=== PATIENT | male | born 1935 | race Caucasian/White ===

== ENCOUNTER 2016-05-06 20:28 | Emergency (ER) | payer MEDICARE, OTHER ==
[~2016-05-06] VITALS: Ht 177.8 cm; Wt 81.8 kg
[~2016-05-06 20:28] MED LIST: COUMADIN; DILTIAZEM360 MG PO; HCTZ 25MG25 MG PO; K-DUR20 MEQ PO; LIP PO; LISINOPRIL5 MG PO; LOW DOSE ASPIRI81 MG PO; NIASPAN 500MG500 MG PO; SORBITRATE PO
[2016-05-06 20:29] VITALS: TEMP 97.9
[2016-05-06 21:24] LABS: ADJUSTED CALCIUM 9.1 mg/dL (8.4-10.2); ALANINE AMINOTRANSFERASE 37 U/L (21-72); ALBUMIN 4.4 gm/dL (3.5-5.0); ALKALINE PHOSPHATASE 100 U/L (50-136); ANION GAP 15 mmol/L (7-16); BILIRUBIN,TOTAL 0.8 mg/dL (0.0-1.0); BLOOD UREA NITROGEN 28 mg/dL (9-20); CALCIUM 9.4 mg/dL (8.4-10.2); CARBON DIOXIDE 21 mmol/L (22-30); CHLORIDE 103 mmol/L (98-107); CREATININE, serum 1.65 mg/dL (0.66-1.25); GLUCOSE 120 mg/dL (74-106); POTASSIUM 4.6 mmol/L (3.4-5.0); SODIUM 139 mmol/L (137-145); TOTAL PROTEIN 10.1 gm/dL (6.4-8.2)
[2016-05-06 21:25] LABS: BASO % 0.4 % (0.0-2.0); EOS # 0.1 (0.0-0.7); EOS % 1.1 % (0-4.0); GRAN # 5.5 (1.4-6.5); GRAN % 76.5 % (42.2-75.2); LYMPH % 13.9 % (20.0-51.0); MEAN CELL VOLUME 89 fl (80.0-100.0); MEAN CORPUSCULAR HEMOGLOBIN 30 pg (27.0-31.0); MEAN CORPUSCULAR HGB CONC 34 g/dl (33.0-37.0); MEAN PLATELET VOLUME 10.7 fl (7.4-10.4); MONO # 0.6 (0.1-0.6); MONO % 7.7 % (1.7-9.3); PLATELET COUNT 213 K/mm3 (130-400); RED BLOOD COUNT 4.04 M/mm3 (4.20-5.60); REDCELL DISTRIBUTION WIDTH-CV 14.3 % (11.5-14.5); WHITE BLOOD COUNT 7.2 K/mm3 (4.8-10.8)
[2016-05-06 21:30] LABS: HEMATOCRIT 35.8 % (42.0-52.0)
[2016-05-06 21:37] LABS: INR 2.5 (0.8-3.0); TROPONIN-I < 0.012 ng/mL (0.000-0.034)
[2016-05-06 21:39] LABS: PARTIAL THROMBOPLASTIN TIME 20.6 SECONDS (26.0-37.0)
[2016-05-06] MEDS ORDERED: NORCO 325 MG-51 TAB PO (21:59)
[2016-05-06 22:23] VITALS: BP 131/61; PULSE 69
== END 2016-05-06 22:23 | disposition home or self-care (01) ==
LOC: COL.ER 20:28
PROVIDERS: Family Medicine
DX: R07.89 Other chest pain (principal); R09.89 Other specified symptoms and signs involving the circulatory and respiratory systems; I10 Essential (primary) hypertension; I25.10 Atherosclerotic heart disease of native coronary artery without angina pectoris; I48.91 Unspecified atrial fibrillation; Z79.01 Long term (current) use of anticoagulants
CPT/HCPCS: J1885

== ENCOUNTER 2016-05-23 10:06 | Outpatient (CLI) | payer MEDICARE, OTHER ==
[~2016-05-23] VITALS: Ht 177.8 cm; Wt 81.8 kg
[2016-05-23] VITALS (8 sets, daily range): BP systolic 121–150; BP diastolic 55–73; PULSE 44–65; TEMP 96.3–97.5
[~2016-05-23 10:06] MED LIST changes: +NORCO 325 MG-51 TAB PO
[2016-05-23] MEDS ORDERED: ASPIRIN E.C. 8181 MG PO (10:56)
[2016-05-23] MEDS ORDERED: LIPITOR 40MG TA40 MG PO (10:57)
[2016-05-23] MEDS ORDERED: ISORDIL 20MG20 M1 PO (11:11)
[2016-05-23] MEDS ORDERED: COUMADIN 3MG3 MG/TAB PO (11:14)
[2016-05-23] MEDS ORDERED: COUMADIN 2MG2 MG/TAB PO (11:14)
[2016-05-23] MEDS ORDERED: LOVENOX 8080 MG/0.8 SQ (11:15)
[2016-05-23 11:37] LABS: INR 1.1 (0.8-3.0); PROTHROMBIN TIME 11.8 SECONDS (9.7-12.8)
== END 2016-05-23 17:29 | disposition home or self-care (01) ==
LOC: EUO 10:06
PROVIDERS: Radiology Diagnostic Radiology
DX: M48.54XG Collapsed vertebra, not elsewhere classified, thoracic region, subsequent encounter for fracture with delayed healing (principal); Z79.01 Long term (current) use of anticoagulants
CPT/HCPCS: J2250; J3010; J7120

== ENCOUNTER 2016-07-17 04:44 | Inpatient (IN) | payer MEDICARE, OTHER ==
[~2016-07-17] VITALS: Ht 175.3 cm; Wt 79.8 kg
[~2016-07-17 04:44] MED LIST changes: +ASPIRIN E.C. 8181 MG PO; +COUMADIN 2MG2 MG/TAB PO; +COUMADIN 3MG3 MG/TAB PO; +ISORDIL 20MG20 M1 PO; +LIPITOR 40MG TA40 MG PO; +LOVENOX 8080 MG/0.8 SQ
[2016-07-17] MEDS ORDERED: ISORDIL TITRADO30 MG PO (04:55)
[2016-07-17] MEDS ORDERED: ZOVIRAX400 MG PO (04:58)
[2016-07-17] MEDS ORDERED: DECADRON 4MG TAB4 MG PO (04:59)
[2016-07-17] MEDS ORDERED: VELCADE3.5 MG SQ (05:00)
[2016-07-17] MEDS ORDERED: ZOMETA4 MG/5 ML IV (05:01)
[2016-07-17] MEDS ORDERED: PERI-COLACE 501 TAB PO ×2 (05:02→05:03)
[2016-07-17 05:51] LABS: MEAN CELL VOLUME 87 fl (80.0-100.0); MEAN CORPUSCULAR HGB CONC 35 g/dl (33.0-37.0); PLATELET COUNT 95 K/mm3 (130-400); RED BLOOD COUNT 3.45 M/mm3 (4.20-5.60); REDCELL DISTRIBUTION WIDTH-CV 15.5 % (11.5-14.5); WHITE BLOOD COUNT 12.4 K/mm3 (4.8-10.8)
[2016-07-17 06:02] LABS: ADJUSTED CALCIUM 9.3 mg/dL (8.4-10.2); ALBUMIN 3.8 gm/dL (3.5-5.0); BILIRUBIN,TOTAL 0.8 mg/dL (0.0-1.0); CALCIUM 9.1 mg/dL (8.4-10.2); CREATININE, serum 1.42 mg/dL (0.66-1.25); TOTAL PROTEIN 8.2 gm/dL (6.4-8.2)
[2016-07-17 06:03] LABS: ADD PATHOLOGY DIFF REVIEW NO; HEMATOCRIT 29.9 % (42.0-52.0); HEMOGLOBIN 10.5 g/dl (13.5-18.0); MEAN CORPUSCULAR HEMOGLOBIN 30 pg (27.0-31.0)
[2016-07-17 06:09] LABS: INR 2.1 (0.8-3.0); PROTHROMBIN TIME 24.2 SECONDS (9.7-12.8)
[2016-07-17 06:19] LABS: BAND 17 % (0-10); NEUTROPHILS 62 % (42.0-75.2); TOTAL CELLS COUNTED 100
[2016-07-17 08:26] VITALS: BP 153/75; PULSE 87; TEMP 97.4
[2016-07-17 13:11] VITALS: BP 134/59; PULSE 86; TEMP 98
[2016-07-17 15:58] LABS: PH 5 (5-8); SQUAMOUS EPITHELIAL None Seen /hpf; URINE APPEARANCE Clear; URINE BACTERIA None Seen /hpf; URINE BILIRUBIN Negative (NEGATIVE); URINE BLOOD Negative (NEGATIVE); URINE COLOR Yellow; URINE GLUCOSE Negative (NEGATIVE); URINE KETONE Negative (NEGATIVE); URINE RBC 0-2 /hpf; URINE UROBILINOGEN Negative (NEGATIVE); URINE WBC 0-2 /hpf
[2016-07-17 17:25] VITALS: BP 163/78; PULSE 86; TEMP 98.4
[2016-07-17 21:41] VITALS: BP 150/65; PULSE 85; TEMP 98.5
[2016-07-18 02:57] VITALS: BP 108/87; PULSE 87; TEMP 98.2
[2016-07-18 05:03] VITALS: BP 146/71; PULSE 77; TEMP 98.5
[2016-07-18 08:26] LABS: CALCIUM 8.5 mg/dL (8.4-10.2); CREATININE, serum 1.31 mg/dL (0.66-1.25); POTASSIUM 4.1 mmol/L (3.4-5.0)
[2016-07-18 08:52] LABS: MEAN CELL VOLUME 89 fl (80.0-100.0); MEAN CORPUSCULAR HGB CONC 34 g/dl (33.0-37.0); MEAN PLATELET VOLUME 13.5 fl (7.4-10.4); PLATELET COUNT 85 K/mm3 (130-400); RED BLOOD COUNT 3.09 M/mm3 (4.20-5.60); REDCELL DISTRIBUTION WIDTH-CV 16.1 % (11.5-14.5); WHITE BLOOD COUNT 7.1 K/mm3 (4.8-10.8)
[2016-07-18 08:54] LABS: ADD PATHOLOGY DIFF REVIEW NO; HEMATOCRIT 27.5 % (42.0-52.0); HEMOGLOBIN 9.3 g/dl (13.5-18.0); MEAN CORPUSCULAR HEMOGLOBIN 30 pg (27.0-31.0)
[2016-07-18 08:55] LABS: INR 2.3 (0.8-3.0); PROTHROMBIN TIME 26.1 SECONDS (9.7-12.8)
[2016-07-18 10:23] VITALS: BP 113/52; PULSE 83; TEMP 98.2
[2016-07-18 12:31] LABS: BAND 7 % (0-10); EOSINOPHIL 2 % (0-4); NEUTROPHILS 67 % (42.0-75.2); TOTAL CELLS COUNTED 100
[2016-07-18 12:32] LABS: ANISOCYTOSIS 1+; PLATELET ESTIMATE DECREASED (NORMAL)
[2016-07-18 14:02] VITALS: BP 108/59; PULSE 92; TEMP 97.5
== END 2016-07-18 16:10 | disposition home or self-care (01) | DRG 389 ==
LOC: COL.ER 04:44 → SURG 07:11
PROVIDERS: Emergency Medicine; Surgery
DX: K56.60 Unspecified intestinal obstruction (principal); C90.00 Multiple myeloma not having achieved remission; I25.10 Atherosclerotic heart disease of native coronary artery without angina pectoris; I12.9 Hypertensive chronic kidney disease with stage 1 through stage 4 chronic kidney disease, or unspecified chronic kidney disease; N18.9 Chronic kidney disease, unspecified; Z87.891 Personal history of nicotine dependence
CPT/HCPCS: J1170; J1650; J2405; J7120; Q9967

== ENCOUNTER 2016-08-07 10:58 | Inpatient (IN) | payer MEDICARE, OTHER ==
[2016-08-07] VITALS (302 sets, daily range): BP systolic 97–106; BP diastolic 48–66; PULSE 52–57; TEMP 97.7–98.2; O2SAT 92–99
[~2016-08-07] VITALS: Ht 175.3 cm; Wt 87.9 kg
[~2016-08-07 10:58] MED LIST changes: +DECADRON 4MG TAB4 MG PO; +ISORDIL TITRADO30 MG PO; +PERI-COLACE 501 TAB PO; +VELCADE3.5 MG SQ; +ZOMETA4 MG/5 ML IV; +ZOVIRAX400 MG PO
[2016-08-07 11:36] LABS: INR 2.9 (0.8-3.0); PROTHROMBIN TIME 33.6 SECONDS (9.7-12.8)
[2016-08-07 11:37] LABS: BASO % 0.2 % (0.0-2.0); EOS % 0.7 % (0-4.0); GRAN % 70.1 % (42.2-75.2); LYMPH # 0.7 (1.2-3.4); LYMPH % 12.9 % (20.0-51.0); MEAN CELL VOLUME 90 fl (80.0-100.0); MEAN CORPUSCULAR HGB CONC 34 g/dl (33.0-37.0); MONO # 0.5 (0.1-0.6); MONO % 8.9 % (1.7-9.3); PLATELET COUNT 72 K/mm3 (130-400); RED BLOOD COUNT 2.57 M/mm3 (4.20-5.60); REDCELL DISTRIBUTION WIDTH-CV 17.4 % (11.5-14.5); WHITE BLOOD COUNT 5.7 K/mm3 (4.8-10.8)
[2016-08-07 11:39] LABS: PARTIAL THROMBOPLASTIN TIME 34.2 SECONDS (26.0-37.0)
[2016-08-07 11:44] LABS: HEMATOCRIT 23.1 % (42.0-52.0); HEMOGLOBIN 7.9 g/dl (13.5-18.0); MEAN CORPUSCULAR HEMOGLOBIN 31 pg (27.0-31.0)
[2016-08-07 11:47] LABS: ADD PATHOLOGY DIFF REVIEW NO
[2016-08-07 11:51] LABS: ADJUSTED CALCIUM 7.9 mg/dL (8.4-10.2); ALBUMIN 3.2 gm/dL (3.5-5.0); BILIRUBIN,TOTAL 0.5 mg/dL (0.0-1.0); CALCIUM 7.3 mg/dL (8.4-10.2); CREATININE, serum 1.97 mg/dL (0.66-1.25); POTASSIUM 3.8 mmol/L (3.4-5.0)
[2016-08-07 12:13] LABS: TROPONIN-I 0.063 ng/mL (0.000-0.034)
[2016-08-07] MEDS ORDERED: MULTI VITAMINS1 TAB PO (12:23)
[2016-08-07] MEDS ORDERED: CALCIUM 600/VIT1 CA1 PO (12:23)
[2016-08-07] MEDS ORDERED: TYLENOL PM EXTR1 TA1 PO (12:24)
[2016-08-07 14:02] LABS: BAND 11 % (0-10); NEUTROPHILS 67 % (42.0-75.2); TOTAL CELLS COUNTED 100
[2016-08-07 14:03] LABS: ANISOCYTOSIS 2+
[2016-08-07 14:04] LABS: HYPOCHROMIA 1+
[2016-08-07 14:06] LABS: PLATELET ESTIMATE DECREASED (NORMAL)
[2016-08-08] VITALS (1190 sets, daily range): BP systolic 96–150; BP diastolic 52–86; PULSE 54–89; TEMP 97.7–99.4; O2SAT 89–98
[2016-08-08 06:14] LABS: MEAN CELL VOLUME 89 fl (80.0-100.0); MEAN CORPUSCULAR HGB CONC 34 g/dl (33.0-37.0); MEAN PLATELET VOLUME 13.4 fl (7.4-10.4); PLATELET COUNT 67 K/mm3 (130-400); RED BLOOD COUNT 3.25 M/mm3 (4.20-5.60); REDCELL DISTRIBUTION WIDTH-CV 16.8 % (11.5-14.5); WHITE BLOOD COUNT 5.8 K/mm3 (4.8-10.8)
[2016-08-08 06:18] LABS: HEMATOCRIT 28.9 % (42.0-52.0); HEMOGLOBIN 9.8 g/dl (13.5-18.0); MEAN CORPUSCULAR HEMOGLOBIN 30 pg (27.0-31.0)
[2016-08-08 06:34] LABS: CALCIUM 7.7 mg/dL (8.4-10.2); CREATININE, serum 1.64 mg/dL (0.66-1.25); POTASSIUM 4.2 mmol/L (3.4-5.0)
[2016-08-08 06:49] LABS: TROPONIN-I 0.04 ng/mL (0.000-0.034)
[2016-08-08 07:06] LABS: BAND 17 % (0-10); EOSINOPHIL 4 % (0-4); METAMYELOCYTE 3 % (0-0); NEUTROPHILS 61 % (42.0-75.2); PLATELET ESTIMATE DECREASED (NORMAL); TOTAL CELLS COUNTED 100
[2016-08-08 07:07] LABS: OVALOCYTES 1+; SCHISTOCYTES 1+
[2016-08-08 07:11] LABS: ADD PATHOLOGY DIFF REVIEW YES
[2016-08-08 08:47] LABS: PATHOLOGY DIFF REVIEW OK
[2016-08-08 13:16] LABS: INR 2.9 (0.8-3.0); PROTHROMBIN TIME 33.5 SECONDS (9.7-12.8)
[2016-08-09] VITALS (584 sets, daily range): BP systolic 112–141; BP diastolic 46–68; PULSE 55–75; TEMP 97.5–98.8; O2SAT 79–100
[2016-08-09 06:15] LABS: MEAN CELL VOLUME 89 fl (80.0-100.0); MEAN CORPUSCULAR HGB CONC 33 g/dl (33.0-37.0); MEAN PLATELET VOLUME 13.2 fl (7.4-10.4); PLATELET COUNT 70 K/mm3 (130-400); RED BLOOD COUNT 3.08 M/mm3 (4.20-5.60); REDCELL DISTRIBUTION WIDTH-CV 16.9 % (11.5-14.5); WHITE BLOOD COUNT 6.1 K/mm3 (4.8-10.8)
[2016-08-09 06:17] LABS: INR 2.4 (0.8-3.0); PROTHROMBIN TIME 27.9 SECONDS (9.7-12.8)
[2016-08-09 06:21] LABS: ADD PATHOLOGY DIFF REVIEW NO; HEMATOCRIT 27.4 % (42.0-52.0); HEMOGLOBIN 9.1 g/dl (13.5-18.0); MEAN CORPUSCULAR HEMOGLOBIN 30 pg (27.0-31.0)
[2016-08-09 06:33] LABS: CALCIUM 7.6 mg/dL (8.4-10.2); CREATININE, serum 1.57 mg/dL (0.66-1.25); POTASSIUM 3.6 mmol/L (3.4-5.0)
[2016-08-09 06:46] LABS: BAND 8 % (0-10); EOSINOPHIL 1 % (0-4); METAMYELOCYTE 3 % (0-0); NEUTROPHILS 75 % (42.0-75.2); PLATELET ESTIMATE DECREASED (NORMAL); TOTAL CELLS COUNTED 100
[2016-08-09] MEDS ORDERED: ZANTAC 7575 MG PO (18:17)
[2016-08-10 04:15] VITALS: BP 168/68; PULSE 73; TEMP 97.9
[2016-08-10 07:46] LABS: MEAN CELL VOLUME 88 fl (80.0-100.0); MEAN CORPUSCULAR HGB CONC 34 g/dl (33.0-37.0); MEAN PLATELET VOLUME 12.8 fl (7.4-10.4); PLATELET COUNT 81 K/mm3 (130-400); RED BLOOD COUNT 3.34 M/mm3 (4.20-5.60); REDCELL DISTRIBUTION WIDTH-CV 16.7 % (11.5-14.5); WHITE BLOOD COUNT 6.9 K/mm3 (4.8-10.8)
[2016-08-10 07:50] LABS: INR 2.2 (0.8-3.0); PROTHROMBIN TIME 25.2 SECONDS (9.7-12.8)
[2016-08-10 07:52] VITALS: BP 128/62; PULSE 67; TEMP 97.8
[2016-08-10 07:54] LABS: ADD PATHOLOGY DIFF REVIEW NO; HEMATOCRIT 29.3 % (42.0-52.0); MEAN CORPUSCULAR HEMOGLOBIN 30 pg (27.0-31.0)
[2016-08-10 07:58] LABS: ADJUSTED CALCIUM 8.8 mg/dL (8.4-10.2); BILIRUBIN,TOTAL 0.9 mg/dL (0.0-1.0); CREATININE, serum 1.53 mg/dL (0.66-1.25); POTASSIUM 3.8 mmol/L (3.4-5.0); TOTAL PROTEIN 6.9 gm/dL (6.4-8.2)
[2016-08-10 09:06] LABS: BAND 10 % (0-10); EOSINOPHIL 2 % (0-4); METAMYELOCYTE 1 % (0-0); NEUTROPHILS 66 % (42.0-75.2); PLATELET ESTIMATE DECREASED (NORMAL); SCHISTOCYTES 1+; TOTAL CELLS COUNTED 100
[2016-08-10 11:53] VITALS: BP 114/41; PULSE 65; TEMP 97.4
[2016-08-10] MEDS ORDERED: IMDUR 30MG30 MG/TAB PO (14:13)
[2016-08-10] MEDS ORDERED: ZEBETA 5MG5 MG PO (14:13)
[2016-08-10] MEDS ORDERED: RANEXA 500MG T500 MG PO (14:18)
== END 2016-08-10 15:00 | disposition home or self-care (01) | DRG 303 ==
LOC: COL.ER 10:58 → IMCU 12:46 → MEDICAL 08-09 12:21
PROVIDERS: Emergency Medicine; Family Medicine; Internal Medicine Cardiovascular Disease
DX: I25.110 Atherosclerotic heart disease of native coronary artery with unstable angina pectoris (principal); C90.00 Multiple myeloma not having achieved remission; K56.7 Ileus, unspecified; I12.9 Hypertensive chronic kidney disease with stage 1 through stage 4 chronic kidney disease, or unspecified chronic kidney disease; N18.3 Chronic kidney disease, stage 3 (moderate); Z87.891 Personal history of nicotine dependence; I25.41 Coronary artery aneurysm; Z79.01 Long term (current) use of anticoagulants; Z85.51 Personal history of malignant neoplasm of bladder; D64.9 Anemia, unspecified; D69.6 Thrombocytopenia, unspecified
CPT/HCPCS: 99223-AI; 99232-AI; 99233-AI; 99239; J1200; J1940; J2405; J2550; J7030; J7050; P9016

== ENCOUNTER 2016-09-21 10:06 | Outpatient (RCR) | payer MEDICARE, OTHER ==
[2016-09-21] VITALS (8 sets, daily range): BP systolic 110–145; BP diastolic 51–77; PULSE 52–61; TEMP 97.4–97.6
[~2016-09-21 10:06] MED LIST changes: +CALCIUM 600/VIT1 CA1 PO; +IMDUR 30MG30 MG/TAB PO; +MULTI VITAMINS1 TAB PO; +RANEXA 500MG T500 MG PO; +TYLENOL PM EXTR1 TA1 PO; +ZANTAC 7575 MG PO; +ZEBETA 5MG5 MG PO
== END 2016-09-21 16:24 | disposition home or self-care (01) ==
LOC: EUO 10:06 → MEDICAL 10:08 → EUO 16:24
DX: R07.9 Chest pain, unspecified (principal)
CPT/HCPCS: OP; J7050; P9016

== ENCOUNTER 2016-10-10 06:32 | Inpatient (IN) | payer MEDICARE, OTHER ==
[~2016-10-10] VITALS: Ht 175.3 cm; Wt 80.4 kg
[2016-10-10 07:00] VITALS: BP 100/42; PULSE 75; TEMP 97.2
[2016-10-10 07:03] LABS: MEAN CELL VOLUME 92 fl (80.0-100.0); MEAN CORPUSCULAR HGB CONC 33 g/dl (33.0-37.0); PLATELET COUNT 220 K/mm3 (130-400); RED BLOOD COUNT 3.81 M/mm3 (4.20-5.60); REDCELL DISTRIBUTION WIDTH-CV 17.2 % (11.5-14.5); WHITE BLOOD COUNT 8.9 K/mm3 (4.8-10.8)
[2016-10-10 07:07] LABS: HEMATOCRIT 34.9 % (42.0-52.0); HEMOGLOBIN 11.4 g/dl (13.5-18.0); MEAN CORPUSCULAR HEMOGLOBIN 30 pg (27.0-31.0)
[2016-10-10 07:12] LABS: INR 1.5 (0.8-3.0); PROTHROMBIN TIME 17.2 SECONDS (9.7-12.8)
[2016-10-10 07:19] LABS: CALCIUM 8.7 mg/dL (8.4-10.2); CREATININE, serum 3.56 mg/dL (0.66-1.25); POTASSIUM 4.8 mmol/L (3.4-5.0)
[2016-10-10] MEDS ORDERED: RANEXA 500MG T500 MG PO (07:27)
[2016-10-10] MEDS ORDERED: ZEBETA 5MG5 MG PO (07:30)
[2016-10-10] MEDS ORDERED: PREDNISONE20 MG PO (07:31)
[2016-10-10] MEDS ORDERED: IMDUR 30MG30 MG/TAB PO (07:32)
[2016-10-10 08:42] VITALS: BP 97/54; PULSE 81
[2016-10-10] MEDS ORDERED: FLOMAX 0.40.4 MG/CAP PO (09:14)
[2016-10-10 15:42] LABS: ADJUSTED CALCIUM 8.9 mg/dL (8.4-10.2); ALBUMIN 3.4 gm/dL (3.5-5.0); BILIRUBIN,TOTAL 0.6 mg/dL (0.0-1.0); CALCIUM 8.4 mg/dL (8.4-10.2); CREATININE, serum 3.49 mg/dL (0.66-1.25); TOTAL PROTEIN 6.7 gm/dL (6.4-8.2)
[2016-10-10 20:50] VITALS: BP 120/44; PULSE 80; TEMP 99
[2016-10-11 03:30] VITALS: BP 145/82; PULSE 84; TEMP 98
[2016-10-11 06:22] LABS: MEAN CELL VOLUME 91 fl (80.0-100.0); MEAN CORPUSCULAR HGB CONC 33 g/dl (33.0-37.0); MEAN PLATELET VOLUME 11.3 fl (7.4-10.4); PLATELET COUNT 209 K/mm3 (130-400); RED BLOOD COUNT 3.33 M/mm3 (4.20-5.60); REDCELL DISTRIBUTION WIDTH-CV 17.2 % (11.5-14.5); WHITE BLOOD COUNT 8.1 K/mm3 (4.8-10.8)
[2016-10-11 06:26] LABS: ADD PATHOLOGY DIFF REVIEW NO; HEMATOCRIT 30.4 % (42.0-52.0); HEMOGLOBIN 9.9 g/dl (13.5-18.0); MEAN CORPUSCULAR HEMOGLOBIN 30 pg (27.0-31.0)
[2016-10-11 06:31] LABS: INR 1.3 (0.8-3.0); PROTHROMBIN TIME 14.7 SECONDS (9.7-12.8)
[2016-10-11 06:33] LABS: ADJUSTED CALCIUM 8.5 mg/dL (8.4-10.2); ALBUMIN 3.8 gm/dL (3.5-5.0); BILIRUBIN,TOTAL 0.6 mg/dL (0.0-1.0); CALCIUM 8.3 mg/dL (8.4-10.2); MAGNESIUM 2.2 mg/dL (1.6-2.3); POTASSIUM 4.7 mmol/L (3.4-5.0); TOTAL PROTEIN 7.7 gm/dL (6.4-8.2)
[2016-10-11 06:49] LABS: BAND 10 % (0-10); EOSINOPHIL 2 % (0-4); METAMYELOCYTE 4 % (0-0); NEUTROPHILS 74 % (42.0-75.2); TOTAL CELLS COUNTED 100; TOXIC GRANULATION PRESENT
[2016-10-11 06:50] LABS: MICROCYTOSIS 1+; SCHISTOCYTES 1+
[2016-10-11 06:51] LABS: ROULEAUX 1+
[2016-10-11 06:52] LABS: ANISOCYTOSIS 1+; HYPOCHROMIA 1+; POIKILOCYTOSIS 1+
[2016-10-11 08:34] VITALS: BP 142/70; PULSE 87; TEMP 97.9
[2016-10-11 11:22] LABS: PH 5 (5-8); SQUAMOUS EPITHELIAL None Seen /hpf; URINE APPEARANCE Turbid; URINE BACTERIA Many /hpf; URINE BILIRUBIN Negative (NEGATIVE); URINE BLOOD Negative (NEGATIVE); URINE COLOR Amber; URINE GLUCOSE Negative (NEGATIVE); URINE KETONE Negative (NEGATIVE); URINE RBC None Seen /hpf; URINE UROBILINOGEN Negative (NEGATIVE); URINE WBC >50 /hpf
[2016-10-11 11:54] LABS: CREATININE, serum 2.75 mg/dL (0.66-1.25)
[2016-10-11 12:07] VITALS: BP 125/73; PULSE 91; TEMP 97.4
[2016-10-11 12:09] LABS: FRACTIONAL EXCRETION OF NA+ 1.2 %
[2016-10-11 16:01] LABS: ANA SCREEN with REFLEX Negative (Negative)
[2016-10-11 16:40] VITALS: BP 135/80; PULSE 90; TEMP 97.4
[2016-10-11 20:06] VITALS: BP 151/74; PULSE 91; TEMP 98
[2016-10-11 23:20] VITALS: BP 137/64; PULSE 88; TEMP 98
[2016-10-12] VITALS (11 sets, daily range): BP systolic 114–155; BP diastolic 62–91; PULSE 83–107; TEMP 97.9–98.7
[2016-10-12 07:23] LABS: MEAN CELL VOLUME 91 fl (80.0-100.0); MEAN CORPUSCULAR HGB CONC 32 g/dl (33.0-37.0); MEAN PLATELET VOLUME 11.6 fl (7.4-10.4); PLATELET COUNT 160 K/mm3 (130-400); RED BLOOD COUNT 3.13 M/mm3 (4.20-5.60); REDCELL DISTRIBUTION WIDTH-CV 17.2 % (11.5-14.5); WHITE BLOOD COUNT 5.5 K/mm3 (4.8-10.8)
[2016-10-12 07:27] LABS: HEMATOCRIT 28.5 % (42.0-52.0); HEMOGLOBIN 9.2 g/dl (13.5-18.0); MEAN CORPUSCULAR HEMOGLOBIN 29 pg (27.0-31.0)
[2016-10-12 07:45] LABS: CALCIUM 8.3 mg/dL (8.4-10.2); CREATININE, serum 1.89 mg/dL (0.66-1.25); POTASSIUM 4.9 mmol/L (3.4-5.0)
[2016-10-12 08:41] LABS: ANISOCYTOSIS 2+; BAND 44 % (0-10); METAMYELOCYTE 2 % (0-0); MYELOCYTE 4 % (0-0); NEUTROPHILS 37 % (42.0-75.2); OVALOCYTES 1+; PLATELET ESTIMATE DECREASED (NORMAL); TOTAL CELLS COUNTED 100
[2016-10-12 08:42] LABS: BURR CELLS 1+
[2016-10-12 08:44] LABS: ADD PATHOLOGY DIFF REVIEW YES
[2016-10-13 03:09] VITALS: BP 151/90; PULSE 83; TEMP 97.7
[2016-10-13 08:15] VITALS: BP 145/76; PULSE 103; TEMP 97.9
[2016-10-13 08:27] LABS: MEAN CELL VOLUME 91 fl (80.0-100.0); MEAN CORPUSCULAR HGB CONC 33 g/dl (33.0-37.0); MEAN PLATELET VOLUME 11.4 fl (7.4-10.4); PLATELET COUNT 208 K/mm3 (130-400); RED BLOOD COUNT 3.51 M/mm3 (4.20-5.60); REDCELL DISTRIBUTION WIDTH-CV 17.4 % (11.5-14.5); WHITE BLOOD COUNT 10.6 K/mm3 (4.8-10.8)
[2016-10-13 08:38] LABS: CALCIUM 8.5 mg/dL (8.4-10.2); CREATININE, serum 1.47 mg/dL (0.66-1.25); POTASSIUM 4.4 mmol/L (3.4-5.0)
[2016-10-13 08:46] LABS: HEMOGLOBIN 10.5 g/dl (13.5-18.0); MEAN CORPUSCULAR HEMOGLOBIN 30 pg (27.0-31.0)
[2016-10-13 08:47] LABS: ADD PATHOLOGY DIFF REVIEW NO
[2016-10-13 11:04] LABS: ANISOCYTOSIS 2+; BAND 29 % (0-10); METAMYELOCYTE 2 % (0-0); MYELOCYTE 4 % (0-0); NEUTROPHILS 50 % (42.0-75.2); PLATELET ESTIMATE NORMAL (NORMAL); TOTAL CELLS COUNTED 100
[2016-10-13 11:05] LABS: BURR CELLS 1+; OVALOCYTES 1+
[2016-10-13 11:50] VITALS: BP 138/72; PULSE 72; TEMP 97.2
[2016-10-13 15:37] VITALS: BP 139/81; PULSE 78; TEMP 97.8
[2016-10-13 20:08] VITALS: BP 143/81; PULSE 87; TEMP 98.3
[2016-10-14] VITALS (60 sets, daily range): BP systolic 110–150; BP diastolic 64–93; PULSE 77–117; TEMP 97.1–98.6; O2SAT 92–99
[2016-10-14 08:43] LABS: PATHOLOGY DIFF REVIEW OK
[2016-10-14 13:54] LABS: MEAN CELL VOLUME 91 fl (80.0-100.0); MEAN CORPUSCULAR HGB CONC 33 g/dl (33.0-37.0); MEAN PLATELET VOLUME 11.3 fl (7.4-10.4); PLATELET COUNT 178 K/mm3 (130-400); RED BLOOD COUNT 3.36 M/mm3 (4.20-5.60); REDCELL DISTRIBUTION WIDTH-CV 17.2 % (11.5-14.5); WHITE BLOOD COUNT 13.5 K/mm3 (4.8-10.8)
[2016-10-14 13:55] LABS: HEMATOCRIT 30.5 % (42.0-52.0); MEAN CORPUSCULAR HEMOGLOBIN 30 pg (27.0-31.0)
[2016-10-14 13:56] LABS: ADD PATHOLOGY DIFF REVIEW NO
[2016-10-14 14:04] LABS: INR 1.1 (0.8-3.0); PROTHROMBIN TIME 12.6 SECONDS (9.7-12.8)
[2016-10-14 14:12] LABS: BAND 21 % (0-10); NEUTROPHILS 68 % (42.0-75.2); PLATELET ESTIMATE NORMAL (NORMAL); TOTAL CELLS COUNTED 100
[2016-10-14 14:13] LABS: ANISOCYTOSIS 1+
[2016-10-14 14:15] LABS: TOXIC GRANULATION PRESENT
[2016-10-14 14:31] LABS: CALCIUM 8.3 mg/dL (8.4-10.2); CREATININE, serum 1.26 mg/dL (0.66-1.25); MAGNESIUM 1.9 mg/dL (1.6-2.3); POTASSIUM 4.2 mmol/L (3.4-5.0)
[2016-10-15] VITALS (194 sets, daily range): BP systolic 111–135; BP diastolic 57–90; PULSE 53–88; TEMP 97–99.4; O2SAT 90–100
[2016-10-15 06:01] LABS: MEAN CELL VOLUME 90 fl (80.0-100.0); MEAN CORPUSCULAR HGB CONC 33 g/dl (33.0-37.0); MEAN PLATELET VOLUME 11.4 fl (7.4-10.4); PLATELET COUNT 163 K/mm3 (130-400); RED BLOOD COUNT 3.28 M/mm3 (4.20-5.60); REDCELL DISTRIBUTION WIDTH-CV 17.3 % (11.5-14.5); WHITE BLOOD COUNT 15.3 K/mm3 (4.8-10.8)
[2016-10-15 06:04] LABS: ADD PATHOLOGY DIFF REVIEW NO; HEMATOCRIT 29.5 % (42.0-52.0); HEMOGLOBIN 9.8 g/dl (13.5-18.0); MEAN CORPUSCULAR HEMOGLOBIN 30 pg (27.0-31.0)
[2016-10-15 06:17] LABS: CALCIUM 8.1 mg/dL (8.4-10.2); CREATININE, serum 1.17 mg/dL (0.66-1.25); POTASSIUM 4.3 mmol/L (3.4-5.0)
[2016-10-15 06:19] LABS: BAND 18 % (0-10); EOSINOPHIL 1 % (0-4); METAMYELOCYTE 1 % (0-0); NEUTROPHILS 70 % (42.0-75.2); TOTAL CELLS COUNTED 100
[2016-10-15 06:20] LABS: ANISOCYTOSIS 1+; PLATELET ESTIMATE NORMAL (NORMAL)
[2016-10-15 16:16] LABS: MAGNESIUM 2.1 mg/dL (1.6-2.3)
[2016-10-16 03:14] VITALS: BP 124/59; PULSE 64; TEMP 98.7
[2016-10-16 03:28] VITALS: BP 124/59; PULSE 64; TEMP 98.7
[2016-10-16 08:18] VITALS: BP 124/60; PULSE 62; TEMP 97.6
[2016-10-16 08:35] LABS: MEAN CELL VOLUME 91 fl (80.0-100.0); MEAN CORPUSCULAR HGB CONC 33 g/dl (33.0-37.0); MEAN PLATELET VOLUME 11.4 fl (7.4-10.4); PLATELET COUNT 165 K/mm3 (130-400); RED BLOOD COUNT 3.14 M/mm3 (4.20-5.60); REDCELL DISTRIBUTION WIDTH-CV 17.7 % (11.5-14.5); WHITE BLOOD COUNT 14.6 K/mm3 (4.8-10.8)
[2016-10-16 08:37] LABS: HEMATOCRIT 28.5 % (42.0-52.0); HEMOGLOBIN 9.4 g/dl (13.5-18.0); MEAN CORPUSCULAR HEMOGLOBIN 30 pg (27.0-31.0)
[2016-10-16 08:38] LABS: ADD PATHOLOGY DIFF REVIEW NO
[2016-10-16 08:48] LABS: CALCIUM 8.2 mg/dL (8.4-10.2); CREATININE, serum 1.24 mg/dL (0.66-1.25); POTASSIUM 4.1 mmol/L (3.4-5.0)
[2016-10-16 09:32] LABS: BAND 6 % (0-10); EOSINOPHIL 15 % (0-4); METAMYELOCYTE 1 % (0-0); MYELOCYTE 1 % (0-0); NEUTROPHILS 67 % (42.0-75.2); TOTAL CELLS COUNTED 100
[2016-10-16 09:33] LABS: PLATELET ESTIMATE NORMAL (NORMAL)
[2016-10-16 09:34] LABS: ANISOCYTOSIS 1+; POLYCHROMASIA 1+
[2016-10-16 12:33] VITALS: BP 115/52; PULSE 52; TEMP 98.2
[2016-10-16 15:38] VITALS: BP 117/60; PULSE 65; TEMP 97.4
[2016-10-16 20:12] VITALS: BP 109/54; PULSE 66; TEMP 97.5
[2016-10-17 00:13] VITALS: BP 126/72; PULSE 64; TEMP 98.4
[2016-10-17 04:06] VITALS: BP 135/61; PULSE 63; TEMP 98.2
[2016-10-17 07:18] LABS: CALCIUM 8.2 mg/dL (8.4-10.2); CREATININE, serum 1.2 mg/dL (0.66-1.25); POTASSIUM 3.9 mmol/L (3.4-5.0)
[2016-10-17 07:25] LABS: MEAN CELL VOLUME 90 fl (80.0-100.0); MEAN CORPUSCULAR HGB CONC 33 g/dl (33.0-37.0); MEAN PLATELET VOLUME 11.8 fl (7.4-10.4); PLATELET COUNT 150 K/mm3 (130-400); RED BLOOD COUNT 3.03 M/mm3 (4.20-5.60); REDCELL DISTRIBUTION WIDTH-CV 17.6 % (11.5-14.5); WHITE BLOOD COUNT 10.3 K/mm3 (4.8-10.8)
[2016-10-17 07:31] LABS: HEMATOCRIT 27.4 % (42.0-52.0); HEMOGLOBIN 9.1 g/dl (13.5-18.0); MEAN CORPUSCULAR HEMOGLOBIN 30 pg (27.0-31.0)
[2016-10-17 07:32] LABS: ADD PATHOLOGY DIFF REVIEW NO
[2016-10-17] MEDS ORDERED: MACROBID 1100 MG/CAP PO (07:39)
[2016-10-17] MEDS ORDERED: RANEXA1000 MG PO (07:40)
[2016-10-17] MEDS ORDERED: ISORDIL 20MG20 M1 PO (07:41)
[2016-10-17 07:57] VITALS: BP 125/60; PULSE 59; TEMP 97.9
[2016-10-17 08:27] LABS: BAND 28 % (0-10); HYPOCHROMIA 1+; NEUTROPHILS 58 % (42.0-75.2); PLATELET ESTIMATE NORMAL (NORMAL); TOTAL CELLS COUNTED 100
[2016-10-17] MEDS ORDERED: PREDNISONE20 MG PO (10:34)
[2016-10-17 10:38] VITALS: BP 125/60; PULSE 59; TEMP 97.9
[2016-10-17 11:17] LABS: PARTIAL THROMBOPLASTIN TIME 26.7 SECONDS (26.0-37.0)
== END 2016-10-17 11:47 | disposition home or self-care (01) | DRG 682 ==
LOC: EUO 06:32 → COL.CAR 09:30 → MEDICAL 11:34 → ICU 10-14 11:08 → MEDICAL 10-15 19:37 → ICU 10-15 19:37 → MEDICAL 10-15 19:37
PROVIDERS: Family Medicine; Internal Medicine; Internal Medicine Cardiovascular Disease; Nurse Practitioner Family
PROC: B2151ZZ Fluoroscopy of Left Heart using Low Osmolar Contrast (ICD-10-PCS; principal; 2016-10-14)
PROC: 5A2204Z Restoration of Cardiac Rhythm, Single (ICD-10-PCS; 2016-10-15)
DX: N17.9 Acute kidney failure, unspecified (principal); I50.23 Acute on chronic systolic (congestive) heart failure; E43 Unspecified severe protein-calorie malnutrition; I13.0 Hypertensive heart and chronic kidney disease with heart failure and stage 1 through stage 4 chronic kidney disease, or unspecified chronic kidney disease; I25.110 Atherosclerotic heart disease of native coronary artery with unstable angina pectoris; C90.00 Multiple myeloma not having achieved remission; N39.0 Urinary tract infection, site not specified; E87.1 Hypo-osmolality and hyponatremia; E87.2 Acidosis; N18.3 Chronic kidney disease, stage 3 (moderate); I25.82 Chronic total occlusion of coronary artery; B95.2 Enterococcus as the cause of diseases classified elsewhere; I48.0 Paroxysmal atrial fibrillation; Z87.891 Personal history of nicotine dependence; D64.81 Anemia due to antineoplastic chemotherapy
CPT/HCPCS: 99232-AI; 99233-AI; 99239; A9270-GY; C1760; C1894; G0378; J0282; J1200; J1644; J1650; J1940; J2250; J2704; J2930; J3010; J7060; J7512; Q9967

== ENCOUNTER 2017-02-25 11:31 | Day surgery (SDC) | payer MEDICARE, OTHER ==
[~2017-02-25] VITALS: Ht 175.3 cm; Wt 65.3 kg
[2017-02-25] VITALS (9 sets, daily range): BP systolic 102–137; BP diastolic 43–75; PULSE 58–65; TEMP 97.6–98.1
[~2017-02-25 11:31] MED LIST changes: +ALDACTONE50 MG PO; +CORDARONE200 MG/TAB PO; +COREG 6.256.25 MG/TA PO; +FLOMAX 0.40.4 MG/CAP PO; +LASIX 80MG TABL80 MG PO; +LIDODERM 5% PATC1 EA TP; +LUTEIN6 MG PO; +MACROBID 1100 MG/CAP PO; +PLAVIX 75MG TAB75 MG PO; +PREDNISONE20 MG PO; +PRILOTC PO; +PROSCAR 5MG5 MG PO; +RANEXA1000 MG PO; +ZESTRIL2.5 MG PO
[2017-02-25] MEDS ORDERED: LASIX 20MG TABL20 MG PO (12:54)
[2017-02-25] MEDS ORDERED: LIDODERM 5% PATC1 EA TP (12:54)
[2017-02-25] MEDS ORDERED: ALDACTONE 25MG25 M1 PO (12:55)
[2017-02-25] MEDS ORDERED: COREG 3.123.125 MG/T PO (12:56)
[2017-02-25] MEDS ORDERED: BOOST PLUS 240240 ML PO (13:07)
[2017-02-25] MEDS ORDERED: ULTRAM 50MG TAB50 MG PO (13:09)
[2017-02-25] MEDS ORDERED: TYLENOL 325MG325 MG PO (13:09)
[2017-02-26 04:09] VITALS: BP 99/49; PULSE 61; TEMP 97.4
[2017-02-26 09:46] VITALS: BP 118/68; PULSE 52; TEMP 98.2
[2017-02-26 13:46] VITALS: BP 123/59; PULSE 66; TEMP 97.5
[2017-02-26 17:31] VITALS: BP 126/58; PULSE 63; TEMP 98.1
== END 2017-02-26 20:00 | disposition home or self-care (01) ==
LOC: SDCO 11:31 → SURG 16:10 → SDCO 02-26 20:00
DX: N40.1 Benign prostatic hyperplasia with lower urinary tract symptoms (principal); R33.8 Other retention of urine; Z95.5 Presence of coronary angioplasty implant and graft; Z85.51 Personal history of malignant neoplasm of bladder; Z85.828 Personal history of other malignant neoplasm of skin; Z85.79 Personal history of other malignant neoplasms of lymphoid, hematopoietic and related tissues; I10 Essential (primary) hypertension; Z79.82 Long term (current) use of aspirin; E11.22 Type 2 diabetes mellitus with diabetic chronic kidney disease; I13.0 Hypertensive heart and chronic kidney disease with heart failure and stage 1 through stage 4 chronic kidney disease, or unspecified chronic kidney disease; N18.3 Chronic kidney disease, stage 3 (moderate); I50.9 Heart failure, unspecified; Z80.9 Family history of malignant neoplasm, unspecified; Z92.21 Personal history of antineoplastic chemotherapy
CPT/HCPCS: OP; J0690; J1720; J2270; J2405; J2704; J3010; J7030

== ENCOUNTER 2017-08-08 07:03 | Day surgery (SDC) | payer MEDICARE, OTHER ==
[~2017-08-08] VITALS: Ht 175.3 cm; Wt 69.1 kg
[~2017-08-08 07:03] MED LIST changes: +ALDACTONE 25MG25 M1 PO; +BOOST PLUS 240240 ML PO; +COREG 3.123.125 MG/T PO; +LASIX 20MG TABL20 MG PO; +TYLENOL 325MG325 MG PO; +ULTRAM 50MG TAB50 MG PO
[2017-08-08] MEDS ORDERED: UPCAL D 2500 MG1 POW PO (08:09)
[2017-08-08] MEDS ORDERED: MULTIPLE VITAMI1 CAP PO (08:09)
[2017-08-08] MEDS ORDERED: ALDACTONE 25MG25 M1 PO (08:10)
[2017-08-08] MEDS ORDERED: SURFAK 240240 MG/CAP PO (08:11)
[2017-08-08 08:12] LABS: CALCIUM 9.5 mg/dL (8.4-10.2); CREATININE, serum 2.66 mg/dL (0.66-1.25); POTASSIUM 4.2 mmol/L (3.4-5.0)
[2017-08-08] MEDS ORDERED: ZYRTEC 10MG10 MG PO (08:12)
[2017-08-08] MEDS ORDERED: MICRO-K 10 EXT10 MEQ PO (08:13)
[2017-08-08] MEDS ORDERED: NORCO 325 MG-51 TAB PO (09:49)
[2017-08-08 09:53] VITALS: BP 106/62; PULSE 81
[2017-08-08 10:08] VITALS: BP 115/59; PULSE 70
[2017-08-08 10:23] VITALS: BP 108/57; PULSE 70
[2017-08-08 10:38] VITALS: BP 106/57; PULSE 73
[2017-08-08 10:53] VITALS: BP 113/63; PULSE 71
[2017-08-08 14:01] VITALS: BP 105/59; PULSE 92; TEMP 97.4
== END 2017-08-08 07:20 | disposition home or self-care (01) ==
LOC: SDCO 07:03
PROVIDERS: Nurse Anesthetist, Certified Registered
DX: K40.90 Unilateral inguinal hernia, without obstruction or gangrene, not specified as recurrent (principal); C90.00 Multiple myeloma not having achieved remission; I25.10 Atherosclerotic heart disease of native coronary artery without angina pectoris; Z79.899 Other long term (current) drug therapy; Z79.02 Long term (current) use of antithrombotics/antiplatelets; Z85.828 Personal history of other malignant neoplasm of skin; Z87.891 Personal history of nicotine dependence; I13.0 Hypertensive heart and chronic kidney disease with heart failure and stage 1 through stage 4 chronic kidney disease, or unspecified chronic kidney disease; I50.9 Heart failure, unspecified; N18.3 Chronic kidney disease, stage 3 (moderate); I48.91 Unspecified atrial fibrillation
CPT/HCPCS: C1781; J0690; J2250; J2405; J2704; J3010; J7120

== ENCOUNTER 2018-03-15 23:59 | Inpatient (IN) | payer MEDICARE, OTHER ==
[~2018-03-15] VITALS: Ht 175.3 cm; Wt 72.3 kg
[2018-03-15 20:00] VITALS: BP 93/59; PULSE 74; TEMP 98.5
[~2018-03-15 23:59] MED LIST changes: +MICRO-K 10 EXT10 MEQ PO; +MULTIPLE VITAMI1 CAP PO; +SURFAK 240240 MG/CAP PO; +UPCAL D 2500 MG1 POW PO; +ZYRTEC 10MG10 MG PO
[2018-03-16 00:27] LABS: MEAN CELL VOLUME 97 fl (80.0-100.0); MEAN CORPUSCULAR HGB CONC 32 g/dl (33.0-37.0); MEAN PLATELET VOLUME 11.4 fl (7.4-10.4); PLATELET COUNT 189 K/mm3 (130-400); REDCELL DISTRIBUTION WIDTH-CV 16.9 % (11.5-14.5)
[2018-03-16 00:31] LABS: HEMATOCRIT 29.2 % (42.0-52.0); HEMOGLOBIN 9.4 g/dl (13.5-18.0); MEAN CORPUSCULAR HEMOGLOBIN 31 pg (27.0-31.0)
[2018-03-16 00:33] LABS: PROTHROMBIN TIME 11.9 SECONDS (9.7-12.8)
[2018-03-16 00:38] LABS: ALANINE AMINOTRANSFERASE 18 U/L (21-72); ALKALINE PHOSPHATASE 67 U/L (50-136); ANION GAP 9 mmol/L (7-16); AST,SGOT 28 U/L (15-37); BILIRUBIN,TOTAL 0.5 mg/dL (0.0-1.0); BLOOD UREA NITROGEN 53 mg/dL (9-20); CALCIUM 8.7 mg/dL (8.4-10.2); CARBON DIOXIDE 23 mmol/L (22-30); CHLORIDE 106 mmol/L (98-107); CREATININE, serum 2.07 mg/dL (0.66-1.25); GLUCOSE 131 mg/dL (74-106); POTASSIUM 4.2 mmol/L (3.4-5.0); SODIUM 138 mmol/L (137-145); TOTAL PROTEIN 8.9 gm/dL (6.4-8.2)
[2018-03-16 00:47] LABS: ANISOCYTOSIS 1+; BAND 14 % (0-10); BASOPHIL 1 % (0-2); LYMPHOCYTE 7 % (20.0-51.0); NEUTROPHILS 76 % (42.0-75.2); PLATELET ESTIMATE NORMAL (NORMAL)
[2018-03-16 00:48] LABS: BURR CELLS 2+; TEAR DROP CELLS 1+
[2018-03-16 00:49] LABS: HELMET CELLS 1+; SCHISTOCYTES 1+
[2018-03-16 00:50] LABS: TROPONIN-I < 0.012 ng/mL (0.000-0.034)
[2018-03-16] MEDS ORDERED: CALCIUM CARB500 MG PO (01:02)
[2018-03-16] MEDS ORDERED: FLOMAX 0.40.4 MG/CAP PO (01:04)
[2018-03-16] MEDS ORDERED: K-DUR 10 MEQ T10 MEQ PO (01:04)
[2018-03-16] MEDS ORDERED: ULTRAM 50MG TAB50 MG (01:15)
[2018-03-16] MEDS ORDERED: TYLENOL 325MG325 MG PO (01:15)
[2018-03-16] MEDS ORDERED: BENADRYL25 M2 PO (01:15)
[2018-03-16] MEDS ORDERED: LASIX 40MG TABL40 MG PO (01:16)
[2018-03-16] MEDS ORDERED: LASIX 40MG TABL40 MG (01:17)
[2018-03-16 03:37] VITALS: BP 118/94; PULSE 84; TEMP 99.9
[2018-03-16 04:00] VITALS: BP 87/45; PULSE 91; TEMP 99.1
[2018-03-16 04:36] LABS: PARTIAL THROMBOPLASTIN TIME 28.5 SECONDS (26.0-37.0)
[2018-03-16] MEDS ORDERED: VITAMIN D31000 I1 PO (04:46)
[2018-03-16] MEDS ORDERED: DECADRON 4MG TAB4 MG PO (04:48)
[2018-03-16 06:40] LABS: MEAN CELL VOLUME 98 fl (80.0-100.0); MEAN CORPUSCULAR HGB CONC 32 g/dl (33.0-37.0); MEAN PLATELET VOLUME 10.7 fl (7.4-10.4); PLATELET COUNT 137 K/mm3 (130-400); RED BLOOD COUNT 2.46 M/mm3 (4.20-5.60); REDCELL DISTRIBUTION WIDTH-CV 16.9 % (11.5-14.5)
[2018-03-16 06:42] LABS: HEMATOCRIT 24.2 % (42.0-52.0); HEMOGLOBIN 7.7 g/dl (13.5-18.0); MEAN CORPUSCULAR HEMOGLOBIN 31 pg (27.0-31.0)
[2018-03-16 06:58] LABS: CALCIUM 7.5 mg/dL (8.4-10.2); CHOLESTEROL RISK RATIO 3.2; CREATININE, serum 2.19 mg/dL (0.66-1.25); MAGNESIUM 1.8 mg/dL (1.6-2.3); POTASSIUM 4.3 mmol/L (3.4-5.0)
[2018-03-16 07:06] LABS: BAND 19 % (0-10); LYMPHOCYTE 3 % (20.0-51.0); NEUTROPHILS 77 % (42.0-75.2)
[2018-03-16 07:09] LABS: TROPONIN-I 6 HR POST INITIAL 0.034 ng/mL (0.000-0.034)
[2018-03-16 07:11] LABS: PLATELET ESTIMATE NORMAL (NORMAL)
[2018-03-16 07:13] LABS: HYPOCHROMIA 1+
[2018-03-16 07:17] LABS: ANISOCYTOSIS 2+; MICROCYTOSIS 2+
[2018-03-16 07:19] LABS: STOMATOCYTE 1+
[2018-03-16 07:21] VITALS: BP 125/62; PULSE 94; TEMP 98.4
[2018-03-16 10:36] LABS: COLLECTION METHOD CLEAN CATCH
[2018-03-16 10:54] LABS: MUCOUS Present /lpf; PH 5 (5-8); URINE APPEARANCE Hazy; URINE BACTERIA None Seen /hpf; URINE BILIRUBIN Negative (NEGATIVE); URINE BLOOD 1+ (NEGATIVE); URINE COLOR Yellow; URINE GLUCOSE Negative (NEGATIVE); URINE KETONE Negative (NEGATIVE); URINE LEUKOCYTE ESTERASE Trace (NEGATIVE); URINE NITRATE Negative (NEGATIVE); URINE PROTEIN(semi-quant) Negative (NEGATIVE); URINE UROBILINOGEN Negative (NEGATIVE)
[2018-03-16 12:35] VITALS: BP 113/53; PULSE 82; TEMP 97.8
[2018-03-16 15:44] VITALS: BP 96/44; PULSE 71; TEMP 98.6
[2018-03-16 20:00] VITALS: BP 93/59; PULSE 74; TEMP 98.5
[2018-03-17] VITALS: BP 100/52; PULSE 73; TEMP 98.5
[2018-03-17 04:00] VITALS: BP 95/49; PULSE 68; TEMP 98
[2018-03-17 05:41] LABS: CREATININE, serum 1.73 mg/dL (0.66-1.25); POTASSIUM 4.6 mmol/L (3.4-5.0)
[2018-03-17 05:43] LABS: BASO % 0.2 % (0.0-2.0); EOS % 0.3 % (0-4.0); GRAN # 11.9 (1.4-6.5); GRAN % 88.2 % (42.2-75.2); LYMPH # 0.8 (1.2-3.4); LYMPH % 5.9 % (20.0-51.0); MEAN CELL VOLUME 98 fl (80.0-100.0); MEAN CORPUSCULAR HGB CONC 32 g/dl (33.0-37.0); MEAN PLATELET VOLUME 11.5 fl (7.4-10.4); MONO # 0.7 (0.1-0.6); MONO % 5.1 % (1.7-9.3); PLATELET COUNT 132 K/mm3 (130-400); RED BLOOD COUNT 2.55 M/mm3 (4.20-5.60); REDCELL DISTRIBUTION WIDTH-CV 17.2 % (11.5-14.5)
[2018-03-17 05:44] LABS: HEMATOCRIT 25.1 % (42.0-52.0); HEMOGLOBIN 7.9 g/dl (13.5-18.0); MEAN CORPUSCULAR HEMOGLOBIN 31 pg (27.0-31.0)
[2018-03-17 05:54] LABS: TROPONIN-I 0.082 ng/mL (0.000-0.034)
[2018-03-17 08:00] VITALS: BP 128/59; PULSE 102; TEMP 98.8
[2018-03-17 12:00] VITALS: BP 111/54; PULSE 76; TEMP 98.8
[2018-03-17 16:00] VITALS: BP 109/97; PULSE 76; TEMP 99.2
[2018-03-17 20:00] VITALS: BP 116/60; PULSE 80; TEMP 98.8
[2018-03-18] VITALS: BP 113/56; PULSE 68; TEMP 98.8
[2018-03-18 04:00] VITALS: BP 113/56; PULSE 69; TEMP 98.9
[2018-03-18 07:26] LABS: MEAN CELL VOLUME 99 fl (80.0-100.0); MEAN CORPUSCULAR HGB CONC 31 g/dl (33.0-37.0); PLATELET COUNT 147 K/mm3 (130-400); RED BLOOD COUNT 2.46 M/mm3 (4.20-5.60); REDCELL DISTRIBUTION WIDTH-CV 17.1 % (11.5-14.5)
[2018-03-18 07:29] LABS: HEMATOCRIT 24.4 % (42.0-52.0); HEMOGLOBIN 7.6 g/dl (13.5-18.0); MEAN CORPUSCULAR HEMOGLOBIN 31 pg (27.0-31.0)
[2018-03-18 07:35] LABS: CALCIUM 8.1 mg/dL (8.4-10.2); CREATININE, serum 1.66 mg/dL (0.66-1.25); POTASSIUM 4.4 mmol/L (3.4-5.0)
[2018-03-18 07:40] VITALS: BP 121/57; PULSE 70; TEMP 98.4
[2018-03-18 07:52] LABS: BAND 5 % (0-10); EOSINOPHIL 1 % (0-4); LYMPHOCYTE 7 % (20.0-51.0); NEUTROPHILS 82 % (42.0-75.2); PLATELET ESTIMATE NORMAL (NORMAL)
[2018-03-18 08:18] LABS: TROPONIN-I 0.098 ng/mL (0.000-0.034)
[2018-03-18 11:49] VITALS: BP 125/72; PULSE 76; TEMP 97.4
[2018-03-18 16:11] VITALS: BP 117/62; PULSE 70; TEMP 98.2
[2018-03-18 20:00] VITALS: BP 118/56; PULSE 73; TEMP 98.8
[2018-03-19] VITALS (9 sets, daily range): BP systolic 116–124; BP diastolic 55–641; PULSE 63–75; TEMP 98.3–99.4
[2018-03-19 05:56] LABS: BASO % 0.3 % (0.0-2.0); EOS % 0.7 % (0-4.0); GRAN # 4.9 (1.4-6.5); GRAN % 81.7 % (42.2-75.2); LYMPH # 0.5 (1.2-3.4); LYMPH % 7.9 % (20.0-51.0); MEAN CELL VOLUME 97 fl (80.0-100.0); MEAN CORPUSCULAR HGB CONC 32 g/dl (33.0-37.0); MEAN PLATELET VOLUME 11.2 fl (7.4-10.4); MONO # 0.5 (0.1-0.6); MONO % 8.7 % (1.7-9.3); PLATELET COUNT 151 K/mm3 (130-400); RED BLOOD COUNT 2.72 M/mm3 (4.20-5.60)
[2018-03-19 05:58] LABS: HEMATOCRIT 26.3 % (42.0-52.0); HEMOGLOBIN 8.4 g/dl (13.5-18.0); MEAN CORPUSCULAR HEMOGLOBIN 31 pg (27.0-31.0)
[2018-03-19 06:07] LABS: CALCIUM 8.3 mg/dL (8.4-10.2); CREATININE, serum 1.51 mg/dL (0.66-1.25); POTASSIUM 4.4 mmol/L (3.4-5.0)
[2018-03-19] MEDS ORDERED: XOPENEX HF0.045 MG/A IH (10:46)
[2018-03-19] MEDS ORDERED: LOPRESSOR 225 MG/TAB PO (10:49)
[2018-03-19] MEDS ORDERED: NITRO-DUR0.2 MG/PAT TD (10:52)
[2018-03-19] MEDS ORDERED: NITROSTAT0.4 MG/TAB SL (11:17)
[2018-03-19] MEDS ORDERED: ROCEPHIN 2GM VIAL21 IV ×2 (15:06→15:17)
== END 2018-03-19 16:45 | disposition home or self-care (01) | DRG 871 ==
LOC: COL.ER 23:59 → ICU 03-16 01:07
PROVIDERS: Emergency Medicine; Hospitalist; Internal Medicine
DX: A40.3 Sepsis due to Streptococcus pneumoniae (principal); I21.A1 Myocardial infarction type 2; I50.22 Chronic systolic (congestive) heart failure; N17.9 Acute kidney failure, unspecified; I25.10 Atherosclerotic heart disease of native coronary artery without angina pectoris; Z95.5 Presence of coronary angioplasty implant and graft; N18.3 Chronic kidney disease, stage 3 (moderate); E78.5 Hyperlipidemia, unspecified; Z85.79 Personal history of other malignant neoplasms of lymphoid, hematopoietic and related tissues; D64.89 Other specified anemias; R07.89 Other chest pain; Z95.2 Presence of prosthetic heart valve
CPT/HCPCS: 99223-AI; 99232-AI; 99239; A4216; A4314; C1751; C1894; J0456; J0696; J1644; J1940; J2270; J3010; J3370; J7030; J7050; P9016

== ENCOUNTER 2018-03-31 19:40 | Inpatient (IN) | payer MEDICARE ==
[~2018-03-31] VITALS: Ht 175.3 cm; Wt 72.3 kg
[~2018-03-31 19:40] MED LIST changes: +BENADRYL25 M2 PO; +CALCIUM CARB500 MG PO; +K-DUR 10 MEQ T10 MEQ PO; +LASIX 40MG TABL40 MG; +LASIX 40MG TABL40 MG PO; +LOPRESSOR 225 MG/TAB PO; +NITRO-DUR0.2 MG/PAT TD; +NITROSTAT0.4 MG/TAB SL; +ROCEPHIN 2GM VIAL21 IV; +ULTRAM 50MG TAB50 MG; +VITAMIN D31000 I1 PO; +XOPENEX HF0.045 MG/A IH
[2018-03-31 20:04] LABS: BASO % 0.2 % (0.0-2.0); GRAN # 7.6 (1.4-6.5); GRAN % 91.9 % (42.2-75.2); HEMOGLOBIN 10.1 g/dl (13.5-18.0); LYMPH # 0.5 (1.2-3.4); LYMPH % 5.8 % (20.0-51.0); MEAN CELL VOLUME 96 fl (80.0-100.0); MEAN CORPUSCULAR HEMOGLOBIN 31 pg (27.0-31.0); MEAN CORPUSCULAR HGB CONC 32 g/dl (33.0-37.0); MEAN PLATELET VOLUME 9.9 fl (7.4-10.4); MONO # 0.1 (0.1-0.6); MONO % 1.5 % (1.7-9.3); PLATELET COUNT 304 K/mm3 (130-400); RED BLOOD COUNT 3.28 M/mm3 (4.20-5.60); REDCELL DISTRIBUTION WIDTH-CV 15.9 % (11.5-14.5)
[2018-03-31 20:09] LABS: PROTHROMBIN TIME 11.6 SECONDS (9.7-12.8)
[2018-03-31 20:10] LABS: HEMATOCRIT 31.4 % (42.0-52.0)
[2018-03-31 20:12] LABS: PARTIAL THROMBOPLASTIN TIME 27.3 SECONDS (26.0-37.0)
[2018-03-31 20:17] LABS: ALANINE AMINOTRANSFERASE 31 U/L (21-72); ALBUMIN 4.3 gm/dL (3.5-5.0); ALKALINE PHOSPHATASE 125 U/L (50-136); ANION GAP 12 mmol/L (7-16); AST,SGOT 80 U/L (15-37); BILIRUBIN,TOTAL 0.8 mg/dL (0.0-1.0); BLOOD UREA NITROGEN 49 mg/dL (9-20); CALCIUM 8.6 mg/dL (8.4-10.2); CARBON DIOXIDE 19 mmol/L (22-30); CHLORIDE 106 mmol/L (98-107); CREATINE KINASE 38 U/L (55-170); CREATININE, serum 2.18 mg/dL (0.66-1.25); GLUCOSE 232 mg/dL (74-106); LIPASE 136 U/L (23-300); POTASSIUM 4.5 mmol/L (3.4-5.0); SODIUM 136 mmol/L (137-145); TOTAL PROTEIN 9.5 gm/dL (6.4-8.2)
[2018-03-31] MEDS ORDERED: PROBIOTIC ACID1 EAC3 PO (20:22)
[2018-03-31] MEDS ORDERED: VITAMIN D 1001000 IU PO (20:23)
[2018-03-31] MEDS ORDERED: DECADRON 4MG TAB4 MG PO (20:24)
[2018-03-31] MEDS ORDERED: DARZALEX100 MG/5 M IV (20:24)
[2018-03-31] MEDS ORDERED: VELCADE3.5 MG SQ (20:24)
[2018-03-31 20:30] LABS: TROPONIN-I < 0.012 ng/mL (0.000-0.034)
[2018-03-31] MEDS ORDERED: CALCIUM CARB W/1 TA1 PO (22:29)
--- NOTE | 2018-03-31 22:30 | NUR ---
Report received from Rupinder GAMEZ in ED.
[2018-03-31 23:28] LABS: MAGNESIUM 2.6 mg/dL (1.6-2.3)
--- NOTE | 2018-03-31 23:45 | NUR ---
Pt arrived via stretcher to ICU03. Pt transfered with stand by assist from stretcher to bed. Jeans and shoes were removed at this time. Pt denies having medications or wallet in posession at this time. Report prior N/V on the EMS ride to the hospital. Denies any current chest pain. Pt is alone at this time with no family members present. Son in law requested that he is contacted over daughter (DPOA), verbal agreement and permission received from patient for this to occur due to DPOA [place] at this time. Pt is unsure about all medications although referred to a list that was provided by Salina Shah. Will receive clarification on medications and last dose administration with family LIZ.
[2018-03-31 23:49] VITALS: BP 131/73; PULSE 72; TEMP 97.9
[2018-03-31 23:52] VITALS: O2SAT 99
[2018-03-31 23:53] VITALS: O2SAT 98
[2018-04-01] VITALS (192 sets, daily range): BP systolic 124–129; BP diastolic 70–85; PULSE 67–80; TEMP 97.9–98; O2SAT 90–98
[2018-04-01 04:03] LABS: BASO % 0.1 % (0.0-2.0); GRAN % 87.4 % (42.2-75.2); LYMPH # 0.5 (1.2-3.4); LYMPH % 5.6 % (20.0-51.0); MEAN CELL VOLUME 96 fl (80.0-100.0); MEAN CORPUSCULAR HGB CONC 32 g/dl (33.0-37.0); MEAN PLATELET VOLUME 9.6 fl (7.4-10.4); MONO # 0.5 (0.1-0.6); MONO % 6.3 % (1.7-9.3); PLATELET COUNT 230 K/mm3 (130-400); RED BLOOD COUNT 2.91 M/mm3 (4.20-5.60); REDCELL DISTRIBUTION WIDTH-CV 16.1 % (11.5-14.5)
[2018-04-01 04:09] LABS: HEMOGLOBIN 8.9 g/dl (13.5-18.0); MEAN CORPUSCULAR HEMOGLOBIN 31 pg (27.0-31.0)
[2018-04-01 04:14] LABS: ALBUMIN 3.7 gm/dL (3.5-5.0); BILIRUBIN,TOTAL 0.3 mg/dL (0.0-1.0); CALCIUM 8.2 mg/dL (8.4-10.2); CREATININE, serum 2.2 mg/dL (0.66-1.25); TOTAL PROTEIN 8.5 gm/dL (6.4-8.2)
--- NOTE | 2018-04-01 07:05 | NUR ---
Pt assisted via wheelchair to Nuclear medicine X1 staff assist on tele box and Nitro, heparin, and NS infusing.
--- NOTE | 2018-04-01 07:30 | NUR ---
Pt report provided to Deacon Ace RN. Pt remain in nuclear medicine for VQ scan at this time.
--- NOTE | 2018-04-01 08:00 | NUR ---
Pt awake and alert. Ambulated from bed to wheel chair without difficulty to VQ scan.
--- NOTE | 2018-04-01 08:42 | NUR ---
Initial visit; Patient and his son thanked Moisture Tester for looking in on him and offering God's blessings and wishing him a rapid recovery.
[2018-04-01] MEDS ORDERED: GICOCKTAIL PO (11:21)
--- NOTE | 2018-04-01 13:13 | NUR ---
Pt discharged. Transported to ER parking lot via wheelchair, spouse was driving personal vehicle.
--- NOTE | 2018-04-01 14:26 | NUR ---
fabric worker leader met with patient to discuss discharge planning. Patient lives with spouse and will return there today. Spouse will transport home. Patient states she is independent with his activities of daily living, including driving. Patient's primary care provider is Dr Ty and patient denies difficulty obtaining his prescriptions.
== END 2018-04-01 13:00 | disposition home or self-care (01) | DRG 281 ==
LOC: COL.ER 19:40 → ICU 22:16
PROVIDERS: Emergency Medicine; Nurse Practitioner Family; ADMIT Internal Medicine
DX: I21.A1 Myocardial infarction type 2 (principal); I13.0 Hypertensive heart and chronic kidney disease with heart failure and stage 1 through stage 4 chronic kidney disease, or unspecified chronic kidney disease; I50.22 Chronic systolic (congestive) heart failure; C90.00 Multiple myeloma not having achieved remission; N18.3 Chronic kidney disease, stage 3 (moderate); E78.5 Hyperlipidemia, unspecified; I25.10 Atherosclerotic heart disease of native coronary artery without angina pectoris; Z95.5 Presence of coronary angioplasty implant and graft; Z85.828 Personal history of other malignant neoplasm of skin; Z87.891 Personal history of nicotine dependence; I08.1 Rheumatic disorders of both mitral and tricuspid valves; D64.9 Anemia, unspecified; R73.9 Hyperglycemia, unspecified
CPT/HCPCS: 99222-AI; A9539; A9540; J1644; J7030

== ENCOUNTER 2019-01-13 22:19 | Inpatient (IN) | payer MEDICARE ==
[~2019-01-13] VITALS: Ht 177.8 cm; Wt 75.0 kg
[~2019-01-13 22:19] MED LIST changes: +CALCIUM CARB W/1 TA1 PO; +DARZALEX100 MG/5 M IV; +GICOCKTAIL PO; +PROBIOTIC ACID1 EAC3 PO; +VITAMIN D 1001000 IU PO
[2019-01-13 22:52] LABS: BASO % 0.1 % (0.0-2.0); GRAN # 6.3 (1.4-6.5); GRAN % 83.9 % (42.2-75.2); LYMPH # 0.3 (1.2-3.4); LYMPH % 4.5 % (20.0-51.0); MEAN CELL VOLUME 105 fl (80.0-100.0); MEAN CORPUSCULAR HGB CONC 32 g/dl (33.0-37.0); MEAN PLATELET VOLUME 10.8 fl (7.4-10.4); MONO # 0.8 (0.1-0.6); MONO % 10.4 % (1.7-9.3); PLATELET COUNT 176 K/mm3 (130-400); RED BLOOD COUNT 2.68 M/mm3 (4.20-5.60); REDCELL DISTRIBUTION WIDTH-CV 18.6 % (11.5-14.5)
[2019-01-13 22:54] LABS: HEMATOCRIT 28.1 % (42.0-52.0); HEMOGLOBIN 9.1 g/dl (13.5-18.0); MEAN CORPUSCULAR HEMOGLOBIN 34 pg (27.0-31.0)
[2019-01-13 22:56] LABS: PROTHROMBIN TIME 11.2 SECONDS (9.7-12.8)
[2019-01-13 22:57] LABS: ALBUMIN 4.2 gm/dL (3.5-5.0); BILIRUBIN,TOTAL 0.8 mg/dL (0.0-1.0); CALCIUM 8.4 mg/dL (8.4-10.2); CREATININE, serum 2.13 (0.66-1.25); TOTAL PROTEIN 6.9 gm/dL (6.4-8.2)
[2019-01-13 23:12] LABS: TROPONIN-I 1.53 ng/mL (0.000-0.035)
[2019-01-14] VITALS (594 sets, daily range): BP systolic 108–131; BP diastolic 51–63; PULSE 59–70; TEMP 97.8–98.7; O2SAT 79–100
[2019-01-14] MEDS ORDERED: POMA1CAP PO (00:07)
[2019-01-14] MEDS ORDERED: DECADRON6 MG PO (00:13)
--- NOTE | 2019-01-14 04:30 | NUR ---
RATE CHANGED PER NEW WEIGHT OBTAINED.
[2019-01-14 04:43] LABS: HEMATOCRIT 28.1 % (42.0-52.0); HEMOGLOBIN 9.2 g/dl (13.5-18.0); MEAN CELL VOLUME 105 fl (80.0-100.0); MEAN CORPUSCULAR HEMOGLOBIN 34 pg (27.0-31.0); MEAN CORPUSCULAR HGB CONC 33 g/dl (33.0-37.0); MEAN PLATELET VOLUME 10.5 fl (7.4-10.4); PLATELET COUNT 176 K/mm3 (130-400); RED BLOOD COUNT 2.68 M/mm3 (4.20-5.60); REDCELL DISTRIBUTION WIDTH-CV 18.6 % (11.5-14.5)
[2019-01-14 04:53] LABS: CALCIUM 7.9 mg/dL (8.4-10.2); CREATININE, serum 2.06 (0.66-1.25); MAGNESIUM 2.6 mg/dL (1.6-2.3); POTASSIUM 4.5 mmol/L (3.4-5.0)
--- NOTE | 2019-01-14 05:06 | NUR ---
0050 - RECEIVED REPORT FROM VERA BEST. 0100 - PT ARRIVED IN UNIT, WAS ABLE TO SCOOT HIMSELF FROM STRETCHER TO BED. VSS, ON ROOM AIR AND DENIES ANY PAIN AT THIS TIME. PT ARRIVED WITH HEPARIN AND NITROGLYCERIN RUNNING. HEPARIN AT 8.5 ML/HR AND NITRO AT 3 ML/HR.
[2019-01-14 05:33] LABS: TROPONIN-I 6 HR POST INITIAL 1.36 ng/mL (0.000-0.034)
[2019-01-14 08:32] LABS: CHOLESTEROL RISK RATIO 3.1
--- NOTE | 2019-01-14 09:25 | NUR ---
AND TEAM ROUNDED ON PATEINT AND WENT TO PT BEDSIDE TO DISCUSS PLAN OF CARE.
--- NOTE | 2019-01-14 10:25 | NUR ---
AT PT BEDSIDE DISCUSSING PLAN OF CARE.
--- NOTE | 2019-01-14 11:23 | NUR ---
JAGDEEP met with the patient and the patient's daughter, Nenita to discuss a discharge plan. The patient lives [place]between [facility] with his , Analisa. The patient has a cane, he uses occassionally and a walker and patient reports independence with ADLs. The patient's PCP is Dr. Ty and patient receives medications from [facility] with no difficulties. The patient has advanced directives in the EMR. The patient plans to return home upon discharge. visitor services specialist will continue to follow to ensure a safe discharge.
[2019-01-14 15:36] LABS: CALCIUM 7.8 mg/dL (8.4-10.2); CREATININE, serum 2.05 (0.66-1.25); MAGNESIUM 2.6 mg/dL (1.6-2.3); POTASSIUM 4.3 mmol/L (3.4-5.0)
--- NOTE | 2019-01-14 16:56 | NUR ---
Spoke with Dr. Jacques regarding patient's NTG infusion, states would like to continue with NTG infusion until morning (01/15) and then will transition to PO.
--- NOTE | 2019-01-14 19:15 | NUR ---
Report given to Jane GAMEZ. Patient visiting with sister at bedside. Denies needs at thist time.
--- NOTE | 2019-01-14 19:16 | NUR ---
gave report to VERA Lara.
[2019-01-15] VITALS (393 sets, daily range): BP systolic 99–129; BP diastolic 52–60; PULSE 56–79; TEMP 97.9–98.5; O2SAT 91–100
[2019-01-15 05:27] LABS: MEAN CELL VOLUME 106 fl (80.0-100.0); MEAN CORPUSCULAR HGB CONC 32 g/dl (33.0-37.0); MEAN PLATELET VOLUME 10.2 fl (7.4-10.4); PLATELET COUNT 153 K/mm3 (130-400); RED BLOOD COUNT 2.43 M/mm3 (4.20-5.60); REDCELL DISTRIBUTION WIDTH-CV 18.8 % (11.5-14.5)
[2019-01-15 05:36] LABS: HEMATOCRIT 25.7 % (42.0-52.0); HEMOGLOBIN 8.3 g/dl (13.5-18.0); MEAN CORPUSCULAR HEMOGLOBIN 34 pg (27.0-31.0)
[2019-01-15 05:37] LABS: CALCIUM 7.7 mg/dL (8.4-10.2); CREATININE, serum 2.11 (0.66-1.25); MAGNESIUM 2.5 mg/dL (1.6-2.3); POTASSIUM 4.2 mmol/L (3.4-5.0)
[2019-01-15 05:48] LABS: ANISOCYTOSIS 2+; HYPOCHROMIA 1+; LYMPHOCYTE 18 % (20.0-51.0); NEUTROPHILS 63 % (42.0-75.2); PLATELET ESTIMATE NORMAL (NORMAL)
[2019-01-15 05:50] LABS: TROPONIN-I 0.682 ng/mL (0.000-0.035)
--- NOTE | 2019-01-15 08:50 | NUR ---
PT A&O X4. DENIES PAIN. PT ADMINISTERED FLU VACCINE WITH CDC INFORMATION.
[2019-01-15] MEDS ORDERED: DEMADEX 20MG20 M1 PO (14:33)
--- NOTE | 2019-01-15 15:35 | NUR ---
PT AMBULATED WITHOUT DIFFICULTY WITH FAMILY AND VERA STEINBERG OUT ICU TO ED DOORS.
== END 2019-01-15 15:35 | disposition home or self-care (01) | DRG 280 ==
LOC: COL.ER 22:19 → IMCU 23:15
PROVIDERS: Emergency Medicine; Nurse Practitioner Family; ADMIT Internal Medicine
DX: I21.4 Non-ST elevation (NSTEMI) myocardial infarction (principal); I50.23 Acute on chronic systolic (congestive) heart failure; I13.0 Hypertensive heart and chronic kidney disease with heart failure and stage 1 through stage 4 chronic kidney disease, or unspecified chronic kidney disease; C90.00 Multiple myeloma not having achieved remission; N18.3 Chronic kidney disease, stage 3 (moderate); E78.5 Hyperlipidemia, unspecified; N40.0 Benign prostatic hyperplasia without lower urinary tract symptoms; Z95.2 Presence of prosthetic heart valve; Z88.8 Allergy status to other drugs, medicaments and biological substances; Z87.891 Personal history of nicotine dependence; I25.10 Atherosclerotic heart disease of native coronary artery without angina pectoris
CPT/HCPCS: 99223-AI; 99239; J1644; J1940; J7030

== ENCOUNTER 2019-02-08 07:56 | Inpatient (IN) | payer MEDICARE ==
[2019-02-08] VITALS (312 sets, daily range): BP systolic 105–138; BP diastolic 56–61; PULSE 67–77; TEMP 97.4–97.7; O2SAT 85–100
[~2019-02-08] VITALS: Ht 177.8 cm; Wt 66.2 kg
[~2019-02-08 07:56] MED LIST changes: +DECADRON6 MG PO; +DEMADEX 20MG20 M1 PO; +POMA1CAP PO
[2019-02-08 08:24] LABS: BASO % 0.2 % (0.0-2.0); EOS # 0.1 (0.0-0.7); EOS % 0.8 % (0-4.0); GRAN # 4.5 (1.4-6.5); GRAN % 69.8 % (42.2-75.2); HEMATOCRIT 29.1 % (42.0-52.0); HEMOGLOBIN 9.3 g/dl (13.5-18.0); LYMPH # 0.8 (1.2-3.4); LYMPH % 12.4 % (20.0-51.0); MEAN CELL VOLUME 105 fl (80.0-100.0); MEAN CORPUSCULAR HEMOGLOBIN 34 pg (27.0-31.0); MEAN CORPUSCULAR HGB CONC 32 g/dl (33.0-37.0); MEAN PLATELET VOLUME 10.6 fl (7.4-10.4); MONO % 16.3 % (1.7-9.3); PLATELET COUNT 180 K/mm3 (130-400); RED BLOOD COUNT 2.76 M/mm3 (4.20-5.60); REDCELL DISTRIBUTION WIDTH-CV 17.8 % (11.5-14.5)
[2019-02-08 08:29] LABS: PROTHROMBIN TIME 11.1 SECONDS (9.7-12.8)
[2019-02-08 08:31] LABS: PARTIAL THROMBOPLASTIN TIME 29.5 SECONDS (26.0-37.0)
[2019-02-08 08:37] LABS: BILIRUBIN,TOTAL 0.7 mg/dL (0.0-1.0); CALCIUM 7.9 mg/dL (8.4-10.2); CREATININE, serum 2.2 (0.66-1.25); POTASSIUM 4.1 mmol/L (3.4-5.0); TOTAL PROTEIN 6.7 gm/dL (6.4-8.2)
[2019-02-08 08:48] LABS: TROPONIN-I 0.018 ng/mL (0.000-0.035)
[2019-02-08] MEDS ORDERED: NITRO-DUR0.4 MG/PAT TD (08:49)
--- NOTE | 2019-02-08 14:37 | NUR ---
PT TO ICU PER DR. BURCH.
--- NOTE | 2019-02-08 15:13 | NUR ---
PT TRANSFERED TO ICU CALLED REPORT TO JOSÉ GAMEZ.
--- NOTE | 2019-02-08 15:43 | NUR ---
Pt brought by wheelchair to room 8. Helped to bed and placed on monitor. Denies any chest pain at this time. VSS. Will continue to follow.
--- NOTE | 2019-02-08 18:07 | NUR ---
PT COMPLAINS OF PAIN BETWEEN SHOULDER BLADES AND STATES SAME PAIN BEFORE. Order to start iv nitro for chest pain. Will continue to follow.
--- NOTE | 2019-02-08 19:17 | NUR ---
Report given to Ozzy GAMEZ and care transfered.
[2019-02-09] VITALS (443 sets, daily range): BP systolic 100–119; BP diastolic 51–67; PULSE 57–68; TEMP 97.5–99.1; O2SAT 82–100
--- NOTE | 2019-02-09 05:45 | NUR ---
Patient having difficulty urinating, bladder scan performed and 948 mL indicated in bladder. TAWNY Downing notified, order for straight cath.
[2019-02-09 06:31] LABS: BASO % 0.2 % (0.0-2.0); EOS % 0.6 % (0-4.0); GRAN # 2.8 (1.4-6.5); MEAN CELL VOLUME 106 fl (80.0-100.0); MEAN CORPUSCULAR HGB CONC 32 g/dl (33.0-37.0); MONO # 0.9 (0.1-0.6); MONO % 18.6 % (1.7-9.3); PLATELET COUNT 188 K/mm3 (130-400); RED BLOOD COUNT 2.76 M/mm3 (4.20-5.60); REDCELL DISTRIBUTION WIDTH-CV 17.7 % (11.5-14.5)
[2019-02-09 06:41] LABS: CALCIUM 7.7 mg/dL (8.4-10.2); CREATININE, serum 2.11 (0.66-1.25); MAGNESIUM 2.5 mg/dL (1.6-2.3)
[2019-02-09 06:45] LABS: HEMATOCRIT 29.2 % (42.0-52.0); HEMOGLOBIN 9.4 g/dl (13.5-18.0); MEAN CORPUSCULAR HEMOGLOBIN 34 pg (27.0-31.0)
--- NOTE | 2019-02-09 09:15 | NUR ---
Dr. Stokes rounds on patient at this time. Orders as entered CPOE.
--- NOTE | 2019-02-09 21:31 | NUR ---
Pt doing well. Tx from ICU. Alert and oriented with VSS. Denies chest pain at this time. PM meds given. Denies needs at this time. Call light within reach, will continue to monitor
[2019-02-10 04:00] VITALS: BP 117/56; PULSE 72; TEMP 97.8
[2019-02-10 07:27] LABS: MEAN CELL VOLUME 106 fl (80.0-100.0); MEAN CORPUSCULAR HGB CONC 31 g/dl (33.0-37.0); MEAN PLATELET VOLUME 10.5 fl (7.4-10.4); PLATELET COUNT 200 K/mm3 (130-400); RED BLOOD COUNT 2.89 M/mm3 (4.20-5.60); REDCELL DISTRIBUTION WIDTH-CV 17.3 % (11.5-14.5)
--- NOTE | 2019-02-10 07:30 | NUR ---
PATIENT CALLED OUT STATING HE IS SHAKING AND DOESN'T KNOW WHY. PATIENT SEEMED VERY ANXIOUS. PATIENT WAS ADMITTED FOR CHEST PAIN. PATIENT DENIES CHEST PAIN, SOA, ANXIETY OR FEELING COLD. VITAL TAKEN AND WERE ALL WNL. AFEBRILE. PATIENT COULDN'T TELL ME IF THIS HAD EVER HAPPEN BEFORE. HE SEEMED VERY FRUSTERATED AND ASKED NURSING WHAT IS WRONG WITH HIM. HE WAS TOLD WE ARE TRYING TO FIGURE THAT OUT AND WOULD CALL THE DOCTOR. HE BACAME A LITTLE UPSET AND TOLD NURSING IF WE DIDN'T KNOW WHAT WAS WRONG THEN TO GET OUT.
[2019-02-10 07:35] VITALS: BP 133/54; PULSE 78; TEMP 97.6
[2019-02-10 07:37] LABS: HEMATOCRIT 30.7 % (42.0-52.0); HEMOGLOBIN 9.6 g/dl (13.5-18.0); MEAN CORPUSCULAR HEMOGLOBIN 33 pg (27.0-31.0)
--- NOTE | 2019-02-10 07:40 | NUR ---
DAUGHTER SHOWED UP AND INTROUCED HERSELF AN ICU NURSE AND WAS DRILLING THE NURSE. SHE STATED MULTIPLE TIMES THAT THIS IS A 180 FROM HER DAD'S NORMAL BUT DIDN'T HAVE ANY IDEAS. WHEN NURSING ASKED SEVERAL DIRECT QUESTIONS ABOUT PATIENT'S HEALTH HISTORY, THE PATIENT'S DAUGHTER DID RECALL THE PATIENT DID THE SHAKING THING WHEN HE HAD PNEUMONIA. PATIENT IS VERY FRUSTERATED AND IS NOW CRYING. PATIENT DID START TO COUGH. NOTED YELLOW SPUTUM WITH COUGH. WHEN ASKING ABOUT COUGH AND PREVIOUS PNEUMONIA PATIENT STATED THE SHAKING WAS WITH HIS FEVER. PATIENT IS AFEBRILE. NOTED FC IN BASES. CALLED HOSPITALIST FOR CXR.
--- NOTE | 2019-02-10 08:00 | NUR ---
ALSO OBTAINED A COMPLETE RESP PANEL, LABS, SENT A SPUTUM CULTURE, AND UA. SEE ORDERS. PATIENT'S DAUGHTER CALLED OFF AT WORK TO STAY WITH HER DAD. DAUGHTER SEEMS PRETTY CONCERNED STATING HE HAS BEEN IN THE ICU SEVERAL TIMES AND HE GETS SEPTIC QUICKLY. DAUGHTER WANTED TO DOCTOR AT THE BEDSIDE NOW. NURSING EXPLAINED THE PHYSICIAN AND TEAM WERE IN THE ICU BUT HAVE BEEN UPDATED FREQUENTLY. PATIENT IS NOT IN ANY DIRTRESS. VSS. PATIENT ON RA WITH SATS IN 90'S. NO SOA OR CHEST PAIN. PATIENT STILL SHAKING. NO OTHER SYMPTOMS. PATIENT IN ON CONTACT FOR A HX OF MRSA. NURSING AT BEDSIDE.
[2019-02-10 08:02] VITALS: BP 103/72; PULSE 88; TEMP 99.5
--- NOTE | 2019-02-10 09:00 | NUR ---
PATIENT SEEMS TO BE SHAKING LESS. VITAL STILL STABLE. NO RESP DISTRESS OR CHEST PAIN. DAUGHTER AND NOW AT BEDSIDE. NURSING AT BEDSIDE. HOSPITALIST TEAM ROUNDING
--- NOTE | 2019-02-10 09:59 | NUR ---
JAGDEEP met with the patient and his daughter, Kirsty Ge (ph#[phone]), to discuss discharge plan. The patient was in the restroom. The patient's lives [place]between [place] and [place] with his , Analisa (ph#[phone]). He reports independence with ADLs and has a cane, that he uses occasionally. The patient's PCP is Dr. Gisella Ty and he receives his medications at [facility]. Kirsty reports no difficulties obtaining his meds. The patient's advanced directives are in EMR. His DPOA-HC is his and the alternate is Kirsty. The patient plans to return home with his upon discharge. No additional needs at this time.
[2019-02-10 10:07] LABS: PH 6 (5-8); SQUAMOUS EPITHELIAL 0-2 /hpf; URINE APPEARANCE Clear; URINE BACTERIA Occasional /hpf; URINE BILIRUBIN Negative (NEGATIVE); URINE BLOOD 2+ (NEGATIVE); URINE COLOR Yellow; URINE GLUCOSE Negative (NEGATIVE); URINE KETONE Negative (NEGATIVE); URINE LEUKOCYTE ESTERASE 3+ (NEGATIVE); URINE NITRATE Positive (NEGATIVE); URINE PROTEIN(semi-quant) 2+ (NEGATIVE); URINE RBC 20-50 /hpf; URINE UROBILINOGEN Negative (NEGATIVE)
[2019-02-10 10:12] LABS: COLLECTION METHOD CLEAN CATCH
--- NOTE | 2019-02-10 11:00 | NUR ---
PATIENT SHAKING HAS COMPLETELY STOPPED. NO COMPLAINTS OF ANY ISSUES AT THIS TIME. FAMILY AT BEDSIDE. PATIENT DOING WELL.
[2019-02-10 11:24] VITALS: BP 105/43; PULSE 95; TEMP 98.6
--- NOTE | 2019-02-10 11:50 | NUR ---
spoke with daughter. No needs right now.
[2019-02-10 15:34] VITALS: BP 103/52; PULSE 66; TEMP 97.6
[2019-02-10 19:34] VITALS: BP 106/47; PULSE 68; TEMP 97.4
[2019-02-11] VITALS: BP 104/51; PULSE 74; TEMP 97.5
--- NOTE | 2019-02-11 01:50 | NUR ---
Patient has been resting well throughout the night. Denies pain. Patient states he feels a lot better this evening than he did this morning. Patient denies any further needs. Independent in room. Noted to be hard of hearing. Antibiotics given per orders. Will continue to monitor patient.
[2019-02-11 04:00] VITALS: BP 112/55; PULSE 61; TEMP 97.9
[2019-02-11 06:20] LABS: GRAN # 7.2 (1.4-6.5); GRAN % 83.7 % (42.2-75.2); LYMPH # 0.4 (1.2-3.4); MEAN CELL VOLUME 104 fl (80.0-100.0); MEAN CORPUSCULAR HGB CONC 33 g/dl (33.0-37.0); MEAN PLATELET VOLUME 10.5 fl (7.4-10.4); MONO % 11.4 % (1.7-9.3); PLATELET COUNT 189 K/mm3 (130-400); RED BLOOD COUNT 2.56 M/mm3 (4.20-5.60); REDCELL DISTRIBUTION WIDTH-CV 17.2 % (11.5-14.5)
[2019-02-11 06:27] LABS: HEMATOCRIT 26.6 % (42.0-52.0); HEMOGLOBIN 8.7 g/dl (13.5-18.0); MEAN CORPUSCULAR HEMOGLOBIN 34 pg (27.0-31.0)
[2019-02-11 06:37] LABS: CALCIUM 8.3 mg/dL (8.4-10.2); CREATININE, serum 2.11 (0.66-1.25); POTASSIUM 4.4 mmol/L (3.4-5.0)
[2019-02-11 08:55] VITALS: BP 114/55; PULSE 70; TEMP 97.6
--- NOTE | 2019-02-11 11:38 | NUR ---
The patient is to discharge back home with his today, 02/11. SW presented and explained the IM form to the patient. The patient verbalized understanding, signed, and he was provided a copy. No additional needs at this time.
[2019-02-11] MEDS ORDERED: OMNICEF 300MG300 MG PO (11:44)
[2019-02-11] MEDS ORDERED: ZITHROMAX500 M2 PO (11:45)
[2019-02-11] MEDS ORDERED: NORVASC 5MG5 MG/TAB PO (11:46)
[2019-02-11 12:55] VITALS: BP 115/50; PULSE 79; TEMP 98
--- NOTE | 2019-02-11 17:00 | NUR ---
PATIENT DISCHARGING HOME VIA WC TO PERSONAL VEHICLE WITH DAUGHTER. GAVE DISCHARGE INSTRUCTIONS, PRESCRIPTIONS SENT TO PHARMACY, AND FOLLOW UP APTS GIVEN. ANSWERED ALL QUESTIONS/CONCERNS. PATIENT DISCHARGED.
== END 2019-02-11 17:00 | disposition home or self-care (01) | DRG 280 ==
LOC: COL.ER 07:56 → SURG 09:34 → MEDICAL 09:34 → ICU 09:34 → MEDICAL 11:03 → ICU 15:15 → SURG 02-09 19:24
PROVIDERS: Nurse Practitioner Family; Physician Assistant; ADMIT Internal Medicine
DX: I31.9 Disease of pericardium, unspecified (principal); I21.4 Non-ST elevation (NSTEMI) myocardial infarction; J18.9 Pneumonia, unspecified organism; I25.110 Atherosclerotic heart disease of native coronary artery with unstable angina pectoris; I13.0 Hypertensive heart and chronic kidney disease with heart failure and stage 1 through stage 4 chronic kidney disease, or unspecified chronic kidney disease; C90.00 Multiple myeloma not having achieved remission; N39.0 Urinary tract infection, site not specified; I50.30 Unspecified diastolic (congestive) heart failure; I11.0 Hypertensive heart disease with heart failure; E78.5 Hyperlipidemia, unspecified; N18.9 Chronic kidney disease, unspecified; Z95.5 Presence of coronary angioplasty implant and graft; Z87.891 Personal history of nicotine dependence; Z88.8 Allergy status to other drugs, medicaments and biological substances; I95.1 Orthostatic hypotension; I34.0 Nonrheumatic mitral (valve) insufficiency; N40.0 Benign prostatic hyperplasia without lower urinary tract symptoms; T45.1X5A Adverse effect of antineoplastic and immunosuppressive drugs, initial encounter
CPT/HCPCS: 99232-AI; 99239; A4216; J0456; J0696; J1644; J7050; J8540

== ENCOUNTER 2019-03-20 13:35 | Inpatient (IN) | payer MEDICARE ==
[~2019-03-20] VITALS: Ht 188 cm; Wt 71.4 kg
[2019-03-20] VITALS (310 sets, daily range): BP systolic 78–102; BP diastolic 49–57; PULSE 54–84; TEMP 98.4–99.4; O2SAT 98–100
[~2019-03-20 13:35] MED LIST changes: +NITRO-DUR0.4 MG/PAT TD; +NORVASC 5MG5 MG/TAB PO; +OMNICEF 300MG300 MG PO; +ZITHROMAX500 M2 PO
[2019-03-20 15:01] LABS: MEAN CELL VOLUME 103 fl (80.0-100.0); MEAN CORPUSCULAR HGB CONC 32 g/dl (33.0-37.0); MEAN PLATELET VOLUME 11.4 fl (7.4-10.4); PLATELET COUNT 135 K/mm3 (130-400); RED BLOOD COUNT 2.93 M/mm3 (4.20-5.60); REDCELL DISTRIBUTION WIDTH-CV 16.9 % (11.5-14.5)
[2019-03-20 15:09] LABS: ARTERIAL BLD GAS O2 SATURATION 96.2 % (92-100); ARTERIAL BLOOD GAS BASE EXCESS -4.3 (-2-2); ARTERIAL BLOOD GAS HCO3 17.3 meq/L (22-26); ARTERIAL BLOOD GAS pH 7.52 (7.35-7.45)
[2019-03-20 15:10] LABS: ARTERIAL BLOOD GAS PCO2 21.9 mmHg (35-45)
[2019-03-20 15:11] LABS: HEMATOCRIT 30.2 % (42.0-52.0); HEMOGLOBIN 9.6 g/dl (13.5-18.0); MEAN CORPUSCULAR HEMOGLOBIN 33 pg (27.0-31.0)
[2019-03-20 15:16] LABS: ALBUMIN 4.4 gm/dL (3.5-5.0); BILIRUBIN,TOTAL 0.8 mg/dL (0.0-1.0); C-REACTIVE PROTEIN 6.2 mg/dL (0.0-0.9); CALCIUM 9.3 mg/dL (8.4-10.2); CREATININE, serum 3.02 (0.66-1.25); POTASSIUM 5.4 mmol/L (3.4-5.0); TOTAL PROTEIN 7.5 gm/dL (6.4-8.2)
[2019-03-20 15:43] LABS: TROPONIN-I 0.084 ng/mL (0.000-0.035)
[2019-03-20 16:01] LABS: BAND 9 % (0-10); LYMPHOCYTE 18 % (20.0-51.0); NEUTROPHILS 57 % (42.0-75.2); PLATELET ESTIMATE NORMAL (NORMAL)
[2019-03-20 16:02] LABS: TOXIC GRANULATION PRESENT
[2019-03-20 16:04] LABS: ANISOCYTOSIS 1+; DOHLE BODIES PRESENT
[2019-03-20 16:07] LABS: POLYCHROMASIA 1+
[2019-03-20 18:08] LABS: PROTHROMBIN TIME 11.1 SECONDS (9.7-12.8)
[2019-03-20 18:11] LABS: PARTIAL THROMBOPLASTIN TIME 26.4 SECONDS (26.0-37.0)
[2019-03-20 19:13] LABS: COLLECTION METHOD CLEAN CATCH
[2019-03-20 19:24] LABS: AMORPHOUS CRYSTAL Present /uL; PH 5 (5-8); SQUAMOUS EPITHELIAL 0-2 /hpf; URINE APPEARANCE Cloudy; URINE BACTERIA None Seen /hpf; URINE BILIRUBIN Negative (NEGATIVE); URINE BLOOD Negative (NEGATIVE); URINE COLOR Yellow; URINE GLUCOSE Negative (NEGATIVE); URINE KETONE Negative (NEGATIVE); URINE LEUKOCYTE ESTERASE Negative (NEGATIVE); URINE NITRATE Negative (NEGATIVE); URINE PROTEIN(semi-quant) Negative (NEGATIVE); URINE RBC 0-2 /hpf; URINE UROBILINOGEN Negative (NEGATIVE); URINE WBC 0-2 /hpf
[2019-03-21] VITALS (573 sets, daily range): BP systolic 84–145; BP diastolic 50–113; PULSE 60–114; TEMP 97.4–98.4; O2SAT 75–100
[2019-03-21 00:23] LABS: ARTERIAL BLD GAS O2 SATURATION 98.7 % (92-100); ARTERIAL BLOOD GAS BASE EXCESS -7.2 (-2-2); ARTERIAL BLOOD GAS HCO3 17.2 meq/L (22-26); ARTERIAL BLOOD GAS PCO2 30.5 mmHg (35-45); ARTERIAL BLOOD GAS PO2 177.8 mmHg (80-100); ARTERIAL BLOOD GAS pH 7.37 (7.35-7.45)
[2019-03-21 06:08] LABS: MEAN CELL VOLUME 104 fl (80.0-100.0); MEAN CORPUSCULAR HGB CONC 31 g/dl (33.0-37.0); PLATELET COUNT 84 K/mm3 (130-400); RED BLOOD COUNT 2.03 M/mm3 (4.20-5.60); REDCELL DISTRIBUTION WIDTH-CV 16.9 % (11.5-14.5)
[2019-03-21 06:09] LABS: ARTERIAL BLD GAS O2 SATURATION 97.9 % (92-100); ARTERIAL BLD GAS TCO2 CT 19.4; ARTERIAL BLOOD GAS BASE EXCESS -5.6 (-2-2); ARTERIAL BLOOD GAS HCO3 18.5 meq/L (22-26); ARTERIAL BLOOD GAS PCO2 30.4 mmHg (35-45); ARTERIAL BLOOD GAS PO2 111.9 mmHg (80-100)
[2019-03-21 06:11] LABS: HEMATOCRIT 21.2 % (42.0-52.0); MEAN CORPUSCULAR HEMOGLOBIN 33 pg (27.0-31.0)
[2019-03-21 06:12] LABS: HEMOGLOBIN 6.6 g/dl (13.5-18.0)
[2019-03-21 06:17] LABS: ALBUMIN 2.9 gm/dL (3.5-5.0); BILIRUBIN,TOTAL 0.4 mg/dL (0.0-1.0); CALCIUM 7.4 mg/dL (8.4-10.2); CREATININE, serum 2.83 (0.66-1.25); MAGNESIUM 2.4 mg/dL (1.6-2.3); PHOSPHOROUS 4.9 mg/dL (2.5-4.5); POTASSIUM 4.6 mmol/L (3.4-5.0); TOTAL PROTEIN 5.4 gm/dL (6.4-8.2)
[2019-03-21 08:02] LABS: ANISOCYTOSIS 2+; BAND 6 % (0-10); EOSINOPHIL 2 % (0-4); LYMPHOCYTE 8 % (20.0-51.0); NEUTROPHILS 80 % (42.0-75.2); NUCLEATED RED BLOOD CELL 2 (0-6); PLATELET ESTIMATE DECREASED (NORMAL)
[2019-03-21 09:59] LABS: HEMATOCRIT 20.5 % (42.0-52.0); MEAN CELL VOLUME 104 fl (80.0-100.0); MEAN CORPUSCULAR HEMOGLOBIN 33 pg (27.0-31.0); MEAN CORPUSCULAR HGB CONC 32 g/dl (33.0-37.0); PLATELET COUNT 84 K/mm3 (130-400); RED BLOOD COUNT 1.97 M/mm3 (4.20-5.60); REDCELL DISTRIBUTION WIDTH-CV 17.1 % (11.5-14.5)
[2019-03-21 10:00] LABS: HEMOGLOBIN 6.5 g/dl (13.5-18.0)
[2019-03-22] VITALS (467 sets, daily range): BP systolic 76–131; BP diastolic 46–82; PULSE 9–125; TEMP 97.8–99.6; O2SAT 74–100
[2019-03-22 04:48] LABS: MEAN CELL VOLUME 108 fl (80.0-100.0); MEAN CORPUSCULAR HGB CONC 30 g/dl (33.0-37.0); MEAN PLATELET VOLUME 11.7 fl (7.4-10.4); PLATELET COUNT 91 K/mm3 (130-400); RED BLOOD COUNT 2.21 M/mm3 (4.20-5.60); REDCELL DISTRIBUTION WIDTH-CV 17.2 % (11.5-14.5)
[2019-03-22 04:49] LABS: HEMATOCRIT 23.8 % (42.0-52.0); HEMOGLOBIN 7.2 g/dl (13.5-18.0); MEAN CORPUSCULAR HEMOGLOBIN 33 pg (27.0-31.0)
[2019-03-22 04:51] LABS: INR 0.9 (0.8-3.0); PROTHROMBIN TIME 10.8 SECONDS (9.7-12.8)
[2019-03-22 04:58] LABS: CREATININE, serum 3.13 (0.66-1.25); MAGNESIUM 2.7 mg/dL (1.6-2.3); POTASSIUM 5.2 mmol/L (3.4-5.0)
[2019-03-22 05:33] LABS: ARTERIAL BLD GAS O2 SATURATION 92.3 % (92-100); ARTERIAL BLD GAS TCO2 CT 15.1; ARTERIAL BLOOD GAS BASE EXCESS -11.7 (-2-2); ARTERIAL BLOOD GAS HCO3 14.1 meq/L (22-26); ARTERIAL BLOOD GAS PCO2 31.5 mmHg (35-45); ARTERIAL BLOOD GAS PO2 74.5 mmHg (80-100); ARTERIAL BLOOD GAS pH 7.27 (7.35-7.45)
[2019-03-22 15:30] LABS: MEAN CORPUSCULAR HGB CONC 32 g/dl (33.0-37.0); PLATELET COUNT 121 K/mm3 (130-400); RED BLOOD COUNT 3.22 M/mm3 (4.20-5.60); REDCELL DISTRIBUTION WIDTH-CV 20.9 % (11.5-14.5)
[2019-03-22 15:34] LABS: HEMATOCRIT 31.6 % (42.0-52.0); HEMOGLOBIN 10.1 g/dl (13.5-18.0); MEAN CELL VOLUME 98 fl (80.0-100.0); MEAN CORPUSCULAR HEMOGLOBIN 31 pg (27.0-31.0)
[2019-03-22 15:42] LABS: CALCIUM 6.9 mg/dL (8.4-10.2); CREATININE, serum 3.42 (0.66-1.25); POTASSIUM 5.2 mmol/L (3.4-5.0)
[2019-03-22 15:48] LABS: BAND 7 % (0-10); LYMPHOCYTE 7 % (20.0-51.0); MYELOCYTE 1 % (0-0); NEUTROPHILS 79 % (42.0-75.2); NUCLEATED RED BLOOD CELL 1 (0-6)
[2019-03-22 15:49] LABS: ANISOCYTOSIS 3+
[2019-03-22 15:50] LABS: SCHISTOCYTES 1+; TOXIC GRANULATION PRESENT
[2019-03-23] VITALS (602 sets, daily range): BP systolic 90–109; BP diastolic 52–71; PULSE 90–106; TEMP 98.7–99.3; O2SAT 81–100
[2019-03-23 05:26] LABS: ARTERIAL BLD GAS O2 SATURATION 96.4 % (92-100); ARTERIAL BLOOD GAS BASE EXCESS -7.7 (-2-2); ARTERIAL BLOOD GAS HCO3 17.8 meq/L (22-26); ARTERIAL BLOOD GAS PCO2 36.6 mmHg (35-45); ARTERIAL BLOOD GAS PO2 92.4 mmHg (80-100); ARTERIAL BLOOD GAS pH 7.31 (7.35-7.45)
[2019-03-23 06:18] LABS: PROTHROMBIN TIME 11.8 SECONDS (9.7-12.8)
[2019-03-23 06:42] LABS: ALBUMIN 2.8 gm/dL (3.5-5.0); BILIRUBIN,TOTAL 0.7 mg/dL (0.0-1.0); CALCIUM 6.8 mg/dL (8.4-10.2); CREATININE, serum 3.94 (0.66-1.25); MAGNESIUM 2.7 mg/dL (1.6-2.3); POTASSIUM 4.7 mmol/L (3.4-5.0); TOTAL PROTEIN 5.4 gm/dL (6.4-8.2)
[2019-03-23 08:06] LABS: MEAN CELL VOLUME 98 fl (80.0-100.0); MEAN CORPUSCULAR HGB CONC 33 g/dl (33.0-37.0); MEAN PLATELET VOLUME 11.5 fl (7.4-10.4); PLATELET COUNT 105 K/mm3 (130-400)
[2019-03-23 08:16] LABS: HEMATOCRIT 27.4 % (42.0-52.0); HEMOGLOBIN 8.9 g/dl (13.5-18.0); MEAN CORPUSCULAR HEMOGLOBIN 32 pg (27.0-31.0)
[2019-03-23 09:18] LABS: BAND 16 % (0-10); LYMPHOCYTE 7 % (20.0-51.0); NEUTROPHILS 59 % (42.0-75.2); NUCLEATED RED BLOOD CELL 1 (0-6); PLATELET ESTIMATE DECREASED (NORMAL)
[2019-03-24 23:00] VITALS: BP 161/63; PULSE 92; TEMP 98.3
== END 2019-03-25 03:10 | disposition expired | DRG 871 ==
LOC: COL.ER 13:35 → ICU 16:01 → SURG 03-24 12:47
PROVIDERS: Emergency Medicine; Internal Medicine Critical Care Medicine; Nurse Practitioner Family; ADMIT Internal Medicine
PROC: 0BH17EZ Insertion of Endotracheal Airway into Trachea, Via Natural or Artificial Opening (ICD-10-PCS; 2019-03-20)
PROC: 5A1945Z Respiratory Ventilation, 24-96 Consecutive Hours (ICD-10-PCS; 2019-03-20)
PROC: 06HY33Z Insertion of Infusion Device into Lower Vein, Percutaneous Approach (ICD-10-PCS; principal; 2019-03-21)
DX: A41.89 Other specified sepsis (principal); I21.4 Non-ST elevation (NSTEMI) myocardial infarction; J96.01 Acute respiratory failure with hypoxia; I50.23 Acute on chronic systolic (congestive) heart failure; D61.810 Antineoplastic chemotherapy induced pancytopenia; J10.00 Influenza due to other identified influenza virus with unspecified type of pneumonia; I13.0 Hypertensive heart and chronic kidney disease with heart failure and stage 1 through stage 4 chronic kidney disease, or unspecified chronic kidney disease; N17.9 Acute kidney failure, unspecified; N18.4 Chronic kidney disease, stage 4 (severe); C90.00 Multiple myeloma not having achieved remission; Z68.1 Body mass index [BMI] 19.9 or less, adult; Z66 Do not resuscitate; Z51.5 Encounter for palliative care; I48.0 Paroxysmal atrial fibrillation; D64.9 Anemia, unspecified; R53.81 Other malaise; D69.6 Thrombocytopenia, unspecified; R65.20 Severe sepsis without septic shock; E83.51 Hypocalcemia; N40.0 Benign prostatic hyperplasia without lower urinary tract symptoms; E78.5 Hyperlipidemia, unspecified; I25.10 Atherosclerotic heart disease of native coronary artery without angina pectoris; Z85.828 Personal history of other malignant neoplasm of skin; Z92.21 Personal history of antineoplastic chemotherapy
CPT/HCPCS: 99233-AI; A4216; C9113; J0282; J0330; J0692; J1644; J1720; J1940; J2060; J2250; J2270; J2405; J2704; J2930; J3010; J3370; J7030; J7040; J7050; J7060; P9040